=== PATIENT | male | born 1995 | race Caucasian/White ===

== ENCOUNTER 2017-02-01 11:08 | Emergency (ER) | payer MEDICAID ==
[2017-02-01 11:18] VITALS: BP 119/68; PULSE 78; RESP 20; TEMP 99.1
[2017-02-01] MEDS ORDERED: HYDROcodone/APAP 5-325MG 1 EACH TAB PO STA (11:48)
[2017-02-01] MEDS ORDERED: DIPH,PERTUS(ACELL)TETVAC-LF 0.5 ML VIAL IM ONE (11:48)
--- NOTE | 2017-02-01 11:52 | XR ---
EXAMINATION TYPE: XR finger RT DATE OF EXAM ORDERED: 02/01/2017 11:43 AM HISTORY: Pain. COMPARISON: None. FINDINGS: There is a comminuted, minimally displaced tuft fracture of the right ring finger. IMPRESSION: MINIMALLY DISPLACED, COMPOUND COMMINUTED FRACTURE OF THE TUFT OF THE DISTAL PHALANX OF THE RIGHT RING FINGER. CODE B: INITIAL ENCOUNTER FOR OPEN FRACTURE TYPE I OR II
--- NOTE | 2017-02-01 11:53 | ED ---
Upper Extremity HPI - General Chief Complaint: Extremity Injury, Upper Stated Complaint: finger pain Time Seen by Provider: 02/01/17 11:22 Source: patient, RN notes reviewed Mode of arrival: ambulatory Limitations: no limitations - History of Present Illness Initial Comments: 21 year old male presents emergency Department chief complaint right hand injury. Patient states has right hand fourth digit was crushed in a house door. Patient states that his small cut to his middle this finger in there is paint was the distal tip. The nail is intact. Patient unsure when his last tetanus was. Denies any paresthesias. Patient is right-hand dominant. - Related Data Previous Rx's Medication Instructions Recorded Cephalexin [Keflex] 500 mg PO Q6HR #28 cap 02/01/17 Hydrocodone/Acetaminophen [S[place]et 1 tab PO Q6HR PRN #15 tab 02/01/17 5-325] Allergies Allergy/AdvReac Type Severity Reaction Status Date / Time No Known Allergies Allergy Verified 06/06/16 22:40 Review of Systems ROS Statement: Those systems with pertinent positive or pertinent negative responses have been documented in the HPI. ROS Other: All systems not noted in ROS Statement are negative. Past Medical History Past Medical History: No Reported History History of Any Multi-Drug Resistant Organisms: None Reported Past Surgical History: No Surgical Hx Reported Past Psychological History: No Psychological Hx Reported Smoking Status: Current every day smoker Past Alcohol Use History: Occasional Past Drug Use History: None Reported General Exam Limitations: no limitations General appearance: alert, in no apparent distress Respiratory exam: Present: normal lung sounds bilaterally. Absent: respiratory distress, wheezes, rales, rhonchi, stridor Cardiovascular Exam: Present: regular rate, normal rhythm, normal heart sounds. Absent: systolic murmur, diastolic murmur, rubs, gallop, clicks Extremities exam: Present: other (Right hand fourth digit there is a small laceration which is superficial itching PIP and DIP there is tenderness over the distal tip of the fourth digit patient has lungs range of motion secondary to pain. The nail is intact there is a small subungual hematoma which is only a quarter of the nail.) Course Vital Signs 02/01/17 11:15 Temperature 99.1 F Pulse Rate 78 Respiratory 20 Rate Blood Pressure 119/68 O2 Sat by Pulse 97 Oximetry Medical Decision Making - Medical Decision Making 21-year-old male presented for right hand finger injury. Patient has distal tip fracture. Patient has a small superficial laceration. Patient's tetanus is updated. Patient will be placed in a finger splint the wound was thoroughly cleaned. Patient was placed on antibiotics for 7 days. Return parameters were discussed. Disposition Clinical Impression: Crushing injury of finger, Finger fracture, right Disposition: HOME SELF-CARE Condition: Stable Instructions: Finger Fracture (ED) Additional Instructions: Please return to the Emergency Department if symptoms worsen or any other concerns. Prescriptions: Cephalexin [Keflex] 500 mg PO Q6HR #28 cap Hydrocodone/Acetaminophen [Somerset 5-325] 1 tab PO Q6HR PRN #15 tab PRN Reason: Pain Time of Disposition: 11:52
== END 2017-02-01 12:31 | disposition home or self-care (01) ==
LOC: EC 11:08
DX: S67.194A Crushing injury of right ring finger, initial encounter (principal); S62.634A Displaced fracture of distal phalanx of right ring finger, initial encounter for closed fracture; F17.200 Nicotine dependence, unspecified, uncomplicated; Z23 Encounter for immunization; W23.0XXA Caught, crushed, jammed, or pinched between moving objects, initial encounter; Y92.009 Unspecified place in unspecified non-institutional (private) residence as the place of occurrence of the external cause
CPT/HCPCS: 90471; 90715; 99283

== ENCOUNTER → 2018-03-14 | Outpatient (CLI) | payer MEDICAID ==
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
== END ==
LOC: RADXRMAIN 10:48
PROVIDERS: ATTEND Family Medicine
DX: S99.912A Unspecified injury of left ankle, initial encounter (principal)

== ENCOUNTER 2018-09-28 20:10 | Observation (INO) | payer MEDICAID ==
[2018-09-28] MEDS ORDERED: ONDANSETRON 4 MG/2 ML VIAL IVP STA (22:06)
[2018-09-28] MEDS ORDERED: MORPHINE SULFATE 4 MG/ML SYRINGE IV STA (22:06)
[2018-09-28] MEDS ORDERED: SODIUM CHLORIDE 0.9% 500 ML 500 ML IV STA (22:06)
--- NOTE | 2018-09-28 22:09 | ED ---
General Adult HPI - General Chief complaint: Nausea/Vomiting/Diarrhea Stated complaint: Abd pain Source: patient Mode of arrival: ambulatory Limitations: no limitations - History of Present Illness Initial comments: Dictation was produced using [employer] dictation software. please excuse any grammatical, word or spelling errors. Chief Complaint:-year-old malepast medical history presents with multiple weeks of abdominal pain. History of Present Illness: It is a 23-year-old male presents with abdominal pain and lethargy. Is accompanied by mother. There concern that patient has mononucleosis. He was seen by his primary care doctor couple days ago her blood test was performed. Patient did not have any serious abnormalities. Patient denies any CT scanning. Mother reports that patient has been sleeping excessively. Patient had episode of sore throat and some point. Patient states that he has pain of his left upper and left lower quadrant. Patient has diarrhea. Some nausea but minimal vomiting. The ROS documented in this emergency department record has been reviewed and confirmed by me. Those systems with pertinent positive or negative responses have been documented in the HPI. All other systems are other negative and/or noncontributory. - Related Data Home Medications Medication Instructions Recorded Confirmed No Known Home Medications 09/28/18 09/28/18 Allergies Allergy/AdvReac Type Severity Reaction Status Date / Time No Known Allergies Allergy Verified 09/28/18 22:18 Review of Systems ROS Statement: Those systems with pertinent positive or pertinent negative responses have been documented in the HPI. ROS Other: All systems not noted in ROS Statement are negative. Past Medical History Past Medical History: No Reported History History of Any Multi-Drug Resistant Organisms: None Reported Past Surgical History: No Surgical Hx Reported Past Psychological History: No Psychological Hx Reported Smoking Status: Current every day smoker Past Alcohol Use History: Occasional Past Drug Use History: None Reported General Exam - General Exam Comments Initial Comments: PHYSICAL EXAM: General Impression: Alert and oriented x3, not in acute distress HEENT: Normocephalic atraumatic, extra-ocular movements intact, pupils equal and reactive to light bilaterally, mucous membranes moist. Cardiovascular: Heart regular rate and rhythm, S1&S2 audible, no murmurs, rubs or gallops Chest: Lungs clear to auscultation bilaterally, no rhonchi, no wheeze, no rales Abdomen: Bowel sounds present, abdomen soft mild tenderness to the left upper and left lower quadrant, non-distended, no organomegaly Musculoskeletal: Pulses present and equal in all extremities, no peripheral edema Motor: Power 5/5 bilaterally, no focal deficits noted Neurological: CN II-XII grossly intact, no focal motor or sensory deficits noted Skin: Intact with no visualized rashes Psych: Normal affect and mood Limitations: no limitations Course Vital Signs 09/28/18 09/28/18 09/28/18 20:47 22:11 22:15 Temperature 97.4 F L 98.0 F Pulse Rate 74 58 L Respiratory 18 16 20 Rate Blood Pressure 142/82 116/73 166/77 O2 Sat by Pulse 100 100 98 Oximetry 09/28/18 09/29/18 23:00 00:00 Temperature Pulse Rate 57 L Respiratory 16 16 Rate Blood Pressure 112/55 135/83 O2 Sat by Pulse 98 99 Oximetry Medical Decision Making - Medical Decision Making ED course: Year old male checked was primary care physician to come to the emergency department for abdominal pain workup. They're concerned about mononucleosis. On arrival are within acceptable limits.Laboratory evaluation obtained. CBC, metabolic panel, heterophile antibody are within normal limits. Computed tomography scan of the abdomen and pelvis shows no acute processes. There is however a small amount of fluid in the pelvic region of uncertain significance. Patient appears very uncomfortable. There is a mild gap acidosis. Patient given analgesics with improvement of pain. Patient unable to tolerate by mouth. Given the degree of pain and by mouth intolerance plan have patient admitted for IV analgesics, intravenous fluids and GI consultation. Pending urine studies. - Lab Data Result diagrams: 09/28/18 22:44 09/28/18 22:44 Lab Results 09/28/18 09/28/18 09/28/18 Range/Units 22:44 22:44 22:44 WBC 8.6 (3.8-10.6) k/uL RBC 5.01 (4.30-5.90) m/uL Hgb 16.2 (13.0-17.5) gm/dL Hct 47.7 (39.0-53.0) % MCV 95.1 (80.0-100.0) fL MCH 32.2 (25.0-35.0) pg MCHC 33.9 (31.0-37.0) g/dL RDW 11.8 (11.5-15.5) % Plt Count 314 (150-450) k/uL Neutrophils % 83 % Lymphocytes % 12 % Monocytes % 3 % Eosinophils % 1 % Basophils % 0 % Neutrophils # 7.1 (1.3-7.7) k/uL Lymphocytes # 1.0 (1.0-4.8) k/uL Monocytes # 0.3 (0-1.0) k/uL Eosinophils # 0.1 (0-0.7) k/uL Basophils # 0.0 (0-0.2) k/uL Sodium 141 (137-145) mmol/L Potassium 4.5 (3.5-5.1) mmol/L Chloride 102 (98-107) mmol/L Carbon Dioxide 27 (22-30) mmol/L Anion Gap 12 mmol/L BUN 13 (9-20) mg/dL Creatinine 0.84 (0.66-1.25) mg/dL Est GFR (CKD-EPI)AfAm >90 (>60 ml/min/1.73 sqM) Est GFR (CKD-EPI)NonAf >90 (>60 ml/min/1.73 sqM) Glucose 135 H (74-99) mg/dL Calcium 10.9 H (8.4-10.2) mg/dL Total Bilirubin 1.3 (0.2-1.3) mg/dL AST 20 (17-59) U/L ALT 20 L (21-72) U/L Alkaline Phosphatase 52 (38-126) U/L Total Protein 8.4 H (6.3-8.2) g/dL Albumin 5.0 (3.5-5.0) g/dL Lipase 56 (23-300) U/L Heterophile Antibody Negative (Negative) Disposition Clinical Impression: Abdominal pain Disposition: ADMITTED IP TO THIS [facility] Condition: Fair Referrals: Tito Starkey MD [Primary Care Provider] - 1-2 days Decision Time: 01:00
[2018-09-28 23:12] LABS: Basophils % (A) 0 %; Eosinophils # (A) 0.1 k/uL (0-0.7); Eosinophils % (A) 1 %; HCT 47.7 % (39.0-53.0); HGB 16.2 gm/dL (13.0-17.5); Lymphocytes % (A) 12 %; MCH 32.2 pg (25.0-35.0); MCHC 33.9 g/dL (31.0-37.0); MCV 95.1 fL (80.0-100.0); Mean Platelet Volume 7.4; Monocytes # (A) 0.3 k/uL (0-1.0); Monocytes % (A) 3 %; Neutrophils # (A) 7.1 k/uL (1.3-7.7); Neutrophils % (A) 83 %; Platelet Count 314 k/uL (150-450); RBC 5.01 m/uL (4.30-5.90); RDW 11.8 % (11.5-15.5); WBC 8.6 k/uL (3.8-10.6)
[2018-09-28 23:21] LABS: ALT 20 U/L (21-72); AST 20 U/L (17-59); Alkaline Phosphatase 52 U/L (38-126); Anion Gap 12 mmol/L; Blood Urea Nitrogen 13 mg/dL (9-20); Calcium 10.9 mg/dL (8.4-10.2); Carbon Dioxide 27 mmol/L (22-30); Chloride 102 mmol/L (98-107); Glucose 135 mg/dL (74-99); Lipase 56 U/L (23-300); Potassium 4.5 mmol/L (3.5-5.1); Sodium 141 mmol/L (137-145); Total Bilirubin 1.3 mg/dL (0.2-1.3); Total Protein 8.4 g/dL (6.3-8.2)
--- NOTE | 2018-09-28 23:54 | CT ---
EXAMINATION TYPE: CT abdomen pelvis w con DATE OF EXAM: 09/28/2018 COMPARISON: None HISTORY: Abd pain CT DLP: 607.10 mGycm Automated exposure control for dose reduction was used. TECHNIQUE: Helical acquisition of images was performed from the lung bases through the pelvis. CONTRAST: Performed without Oral Contrast and with IV Contrast, patient injected with 100 mL of Isovue 300. FINDINGS: Lung bases are clear. There is no pleural effusion. Heart size is normal. There is no pericardial eff usion. Stomach appears normal. Liver spleen pancreas gallbladder appear normal. Bile ducts are not dilated. There is no adrenal mass. Kidneys show satisfactory contrast opacification. There is no hydronephrosi s. There is no retroperitoneal adenopathy. Bladder distends smoothly. There is a 1 cm fluid collectio n in the pelvis posteriorly on the left side. There is no inguinal hernia. I see no intestinal wall thickening. There are no dilated loops. There is no mesenteric edema. The ap pendix appears normal. The lumbar spine is intact. Disc spaces are normal. The bony pelvis appears intact. There is no sign of pneumoperitoneum. IMPRESSION: TINY PELVIC FLUID COLLECTION OF UNCERTAIN SIGNIFICANCE . NORMAL APPENDIX.
[2018-09-29] MEDS ORDERED: SODIUM CHLORIDE 0.9% 1,000 ML IV SCH (01:00)
[2018-09-29] MEDS ORDERED: MORPHINE SULFATE 4 MG/ML SYRINGE IV PRN (01:00)
[2018-09-29] MEDS ORDERED: NALOXONE 0.4 MG/ML 1 ML VIAL IV PRN (01:00)
[2018-09-29] MEDS ORDERED: ACETAMINOPHEN TAB 325 MG TAB PO PRN (01:00)
[2018-09-29] MEDS ORDERED: ONDANSETRON 4 MG/2 ML VIAL IVP PRN (01:00)
[2018-09-29] MEDS ORDERED: MORPHINE SULFATE 4 MG/ML SYRINGE IVP PRN (01:02)
[2018-09-29 01:15] LABS: Appearance,Urine Clear (Clear); Bilirubin,Urine Negative (Negative); Blood,Urine Negative (Negative); Color,Urine Yellow; Glucose,Urine (UA) Negative (Negative); Ketones,Urine 1+ (Negative); Leukocyte Esterase,Urine Negative (Negative); Nitrite,Urine Negative (Negative); PH, Urine 8.5 (5.0-8.0); Protein,Urine Trace (Negative); Urobilinogen,Urine <2.0 mg/dL (<2.0)
[2018-09-29 01:26] LABS: Specific Gravity,Urine >1.050 (1.001-1.035)
[2018-09-29] MEDS ORDERED: traMADol 50 MG TAB PO PRN (14:43)
[2018-09-29] MEDS ORDERED: PANTOPRAZOLE 40 MG/10 ML VIAL IVP SCH (15:00)
[2018-09-29] MEDS ORDERED: DICYCLOMINE 20 MG TAB PO PRN (17:31)
[2018-09-29 17:44] VITALS: RESP 18
[2018-09-29 21:21] VITALS: BP 119/73; PULSE 65; TEMP 97.7
--- NOTE | 2018-09-30 09:38 | P.HPIM ---
History of Present Illness H&P Date: 09/29/18 23-year-old male came in with compensative abdominal pain in the epigastric area burning sensation along with her nausea vomiting patient denied any flulike symptoms. Patient had the 3 different types of diarrhea patient has chronic dairy us in his childhood which appears to be gastrocolic reflex whenever he had eats he'll have to have a bowel movement not essentially diarrhea at that time. He has been having increasing diarrhea for one and half week patient had a recent visit to my Patient denied any blood in the stools. Patient is not dehydrated patient was having about 5 stools a day not all of them or diarrhea. Day before presentation patient was having nausea vomiting generalized weakness because of which patient came to ER. Patient was and about appendicitis The Abdomen Was Obtained Which Did Not Show Any Appendicitis R Any Other Significant Abnormality There Is Some Free Fluid in the Abdomen. Patient Doesn't Have Any Fever Chills Cough Runny Nose. Review of Systems REVIEW OF SYSTEMS: CONSTITUTIONAL: No fever, no malaise, no fatigue. HEENT: No recent visual problems or hearing problems. Denied any sore throat. CARDIOVASCULAR: No chest pain, orthopnea, PND, no palpitations, no syncope. PULMONARY: No shortness of breath, no cough, no hemoptysis. GASTROINTESTINAL: As mentioned in HPI NEUROLOGICAL: No headaches, no weakness, no numbness. HEMATOLOGICAL: Denies any bleeding or petechiae. GENITOURINARY: Denies any burning micturition, frequency, or urgency. MUSCULOSKELETAL/RHEUMATOLOGICAL: Denies any joint pain, swelling, or any muscle pain. ENDOCRINE: Denies any polyuria or polydipsia. The rest of the 14-point review of systems is negative. Past Medical History Past Medical History: No Reported History History of Any Multi-Drug Resistant Organisms: None Reported Past Surgical History: No Surgical Hx Reported Past Anesthesia/Blood Transfusion Reactions: No Reported Reaction Additional Past Anesthesia/Blood Transfusion Reaction / Comment(s): "has never had any sx Smoking Status: Current every day smoker - Past Family History Father Family Medical History: No Reported History Mother Family Medical History: Asthma, Hypertension Medications and Allergies Home Medications Medication Instructions Recorded Confirmed Type Omeprazole [PriLOSEC] 40 mg PO KENNETHKFST #14 nafisa. 09/29/18 Rx Allergies Allergy/AdvReac Type Severity Reaction Status Date / Time No Known Allergies Allergy Verified 09/28/18 22:18 Physical Exam Vitals: Vital Signs Temp Pulse Resp BP Pulse Ox 09/29/18 21:20 97.7 F 65 18 119/73 97 09/29/18 17:43 55 L 18 135/88 98 09/29/18 12: 98.6 F 16 117/58 96 09/29/18 10:33 16 108/69 97 PHYSICAL EXAMINATION: GENERAL: The patient is alert and oriented x3, not in any acute distress. Well developed, well nourished. HEENT: Pupils are round and equally reacting to light. EOMI. No scleral icterus. No conjunctival pallor. Normocephalic, atraumatic. No pharyngeal erythema. No thyromegaly. CARDIOVASCULAR: S1 and S2 present. No murmurs, rubs, or gallops. PULMONARY: Chest is clear to auscultation, no wheezing or crackles. ABDOMEN: Soft, nontender, nondistended, normoactive bowel sounds. No palpable organomegaly. MUSCULOSKELETAL: No joint swelling or deformity. EXTREMITIES: No cyanosis, clubbing, or pedal edema. NEUROLOGICAL: Gross neurological examination did not reveal any focal deficits. SKIN: No rashes. Results CBC & Chem 7: 09/28/18 22:44 09/28/18 22:44 Assessment and Plan Plan: -Diarrhea: Patient has 3 different areas patient has normal gastrocolic reflex and patient had some subacute diarrhea has been going on for about one and half week which need to be further evaluated for which I'll obtain a stool study if patient continues to have this diarrhea patient will need further workup for chronic diarrhea including 72 hour fecal fat colonoscopy possible patient will be referred to gastroenterology for this. Patient doesn't have any decentry and patient is not dehydrated at this time. No signs or symptoms of entric fever. The present symptoms had there has been going on for a day which includes fatigue nausea vomiting epigastric abdominal discomfort secondary to viral gastroenteritis with a competent of gastritis for which patient related Prilosec will advance his diet patient is able to tolerate patient will be discharged. -Nicotine use: "Counseling was provided
--- NOTE | 2018-09-30 09:39 | P.DS ---
Providers Date of admission: 09/29/18 01:00 Expected date of discharge: 09/29/18 Attending physician: Graham Rodriguez MD Consults: 09/29/18 01:01 Consult Physician Routine Consulting Provider: Harrison Lackey Consult Reason/Comments: abdominal pain no obvious source, free pelvic fluid Do you want consulting provider notified?: Yes Primary care physician: Tito Starkey Hospital Course: Please refer to my HPI Patient Condition at Discharge: Fair Plan - Discharge Summary Discharge Rx Participant: Yes New Discharge Prescriptions: New Omeprazole [PriLOSEC] 40 mg PO AC-BRKFST #14 capsule. Discharge Medication List Omeprazole [PriLOSEC] 40 mg PO AC-BRKFST #14 capsule. 09/29/18 [Rx] Follow up Appointment(s)/Referral(s): Tito Starkey MD [Primary Care Provider] - 3 Days Harrison Lackey MD [STAFF PHYSICIAN] - 1 Week Discharge Disposition: HOME SELF-CARE
== END 2018-09-29 21:20 | disposition home or self-care (01) ==
LOC: EC 20:10 → 4MS4W 09-29 01:00 → 4SSUR 09-29 03:42 → 4MS4W 09-29 20:03 → 4SSUR 09-29 20:03
PROVIDERS: ADMIT Internal Medicine; ATTEND Internal Medicine
DX: A08.4 Viral intestinal infection, unspecified (principal); K29.70 Gastritis, unspecified, without bleeding; R19.7 Diarrhea, unspecified; E87.2 Acidosis; F17.200 Nicotine dependence, unspecified, uncomplicated; Z71.6 Tobacco abuse counseling; Z79.899 Other long term (current) drug therapy; Z82.49 Family history of ischemic heart disease and other diseases of the circulatory system; Z82.5 Family history of asthma and other chronic lower respiratory diseases
CPT/HCPCS: 96376; 96361; 96374; 96375 ×2; 99285; 36415; 80053; 83690; 85025; 86308; 81003; 74177; G0378; J2270 ×2; J2405; C9113; Q9967

== ENCOUNTER → 2018-10-20 | Day surgery (SDC) | payer MEDICAID ==
[2018-10-18 15:54] VITALS: BMI 21.4
[~2018-10-20] MED LIST: LACTATED RINGERS 1,000 ML IV SCH; LIDOCAINE 1% 20 ML VIAL (10MG/ML) FOR IV START INTRADERMA PRN; LIDOCAINE 1% INJ 10MG/ML (20 ML MDV) ONE; MIDAZOLAM 2 MG/2 ML VIAL ONE; PROPOFOL 10 MG/ML 20 ML VIAL IV ONE
[2018-10-20 08:04] VITALS: RESP 16; TEMP 98.5
[2018-10-20 09:06] VITALS: BP 119/72; PULSE 59
--- NOTE | 2018-10-20 09:06 | P.PCN ---
Date of Procedure: 10/20/18 Description of Procedure: Brief history: Patient is a pleasant scheduled for an elective upper endoscopy as well as colonoscopy as a part of evaluation of a change in his bowel habits, diarrhea and abdominal pain. The patient was previously seen in the emergency department after reporting symptoms of abdominal pain with nausea and vomiting and reports of loose stool. He denied any hematochezia or melena. No prior EGD or colonoscopy reported. Procedure performed: Esophagogastroduodenoscopy with biopsy Colonoscopy with biopsy Estimated blood loss: Minimal. Preoperative diagnosis: Abdominal pain, change in bowel habits, diarrhea Anesthesia: [facility] Procedure: After informed consent was obtained from the patient was brought into the endoscopy unit and IV sedation was administered by anesthesia under continuous monitoring. Initially upper endoscopy was done. The Olympus GF 190 video endoscope was inserted inserted into the mouth and esophagus intubated without any difficulty and was gradually advanced into the stomach and duodenum and carefully examined. The bulb and second part of the duodenum appeared normal with biopsies taken. The scope was then withdrawn into the stomach adequately insufflated with air and upon careful examination the antrum and body, cardia and fundus appeared grossly normal, it was mild to moderate diffuse erythema in the antrum and body of the stomach suggestive of gastritis which was biopsied. The scope was then withdrawn into the esophagus. The GE junction was located at 40 cm to the incisors. It appeared regular with no erythema erosions or ulcerations. Rest of the esophagus appeared normal. Patient tolerated the procedure well. At this time the patient continued to remain sedation. Initial digital rectal examination was normal. Olympus CF 190 video colonoscope was then inserted into the rectum and gradually advanced to the cecum without any difficulty. Careful examination was performed as the scope was gradually being withdrawn. The prep was excellent. The cecum, ascending colon, transverse colon, descending colon, sigmoid colon and rectum appeared normal. Random biopsies were taken in the right colon, transverse colon, left colon and rectum given the patient's history of a change in bowel habits and diarrhea. Retroflexion was performed in the rectum and no lesions were noted, mild internal hemorrhoids were seen. Patient tolerated the procedure well. Impression: 1. Duodenal biopsies. [id number] gastritis of the antrum and body, biopsied. 2. Mild internal hemorrhoids. Random biopsies of the right colon, transverse colon, left colon and rectum. Recommendations: Findings of this examination were discussed with the patient as well as his mother. Continue Prilosec daily. Await pathology from biopsies. Antispasmodic was provided on clinic visit to use as needed for abdominal pain. Follow up with gastroenterology in 2 weeks to review results of pathology.
== END | disposition home or self-care (01) ==
LOC: ORWHC2ENDO 07:47
PROVIDERS: ATTEND Internal Medicine
DX: K29.50 Unspecified chronic gastritis without bleeding (principal); K64.8 Other hemorrhoids; R19.7 Diarrhea, unspecified; F17.210 Nicotine dependence, cigarettes, uncomplicated; K21.9 Gastro-esophageal reflux disease without esophagitis; Z79.899 Other long term (current) drug therapy
CPT/HCPCS: 88305; 45380; 43239; J2250; J2001; J2704

== ENCOUNTER → 2018-11-05 | Outpatient (CLI) | payer MEDICAID | END | disposition home or self-care (01) | LOC: LABWHC1 11:10 | PROVIDERS: ATTEND Internal Medicine | DX: R10.9 Unspecified abdominal pain (principal) | CPT/HCPCS: 36415; 85652; 86140 ==

== ENCOUNTER → 2019-10-12 | Outpatient (CLI) | payer MEDICAID ==
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
== END | disposition home or self-care (01) ==
LOC: RADXRMAIN 12:34
PROVIDERS: ATTEND Family Medicine
DX: S43.402A Unspecified sprain of left shoulder joint, initial encounter (principal); S40.012A Contusion of left shoulder, initial encounter

== ENCOUNTER 2020-03-24 07:22 | Inpatient (IN) | payer MEDICAID ==
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
[2020-03-24 08:26] LABS: Amphetamine Screen,Urine Detected (NotDetected); Barbiturate Screen,Urine Not Detected (NotDetected); Benzodiazepines Screen,Urine Detected (NotDetected); Cocaine Screen,Urine Not Detected (NotDetected); Methadone Screen, Urine Not Detected (NotDetected); Opiate Screen,Urine Detected (NotDetected); Oxycodone Screen, Urine Detected (NotDetected); Phencyclidine Screen,Urine Not Detected (NotDetected); Tricyclic Antidepressant,Urine Not Detected (NotDetected); Urn Cannabinoid Scrn Detected (NotDetected)
[2020-03-24] MEDS ORDERED: MAGNESIUM HYDROXIDE 2,400 MG/10 ML CUP PO PRN (15:04)
[2020-03-24] MEDS ORDERED: MAG HYDROX/AL HYDROX/SIMETH 30 ML CUP PO PRN (15:04)
[2020-03-24] MEDS ORDERED: WATER FOR INJECTION, STERILE 10 ML IV ONE (16:06)
[2020-03-24] MEDS ORDERED: ZIPRASIDONE 20 MG VIAL IM ONE (16:06)
[2020-03-24] MEDS ORDERED: ZIPRASIDONE 20 MG VIAL IM PRN (16:22)
[2020-03-24] MEDS ORDERED: LORazepam 2 MG/ML INJ IM STA (16:22)
[2020-03-24] MEDS ORDERED: LORazepam 2 MG/ML INJ ONE (16:26)
[2020-03-25 08:27] LABS: Basophils % (A) 0 %; Eosinophils # (A) 0.2 k/uL (0-0.7); Eosinophils % (A) 2 %; HCT 45.8 % (39.0-53.0); Lymphocytes # (A) 2.3 k/uL (1.0-4.8); Lymphocytes % (A) 25 %; MCH 30.9 pg (25.0-35.0); MCHC 32.8 g/dL (31.0-37.0); MCV 94.3 fL (80.0-100.0); Mean Platelet Volume 8.1; Monocytes # (A) 0.4 k/uL (0-1.0); Monocytes % (A) 5 %; Neutrophils % (A) 66 %; Platelet Count 262 k/uL (150-450); RBC 4.86 m/uL (4.30-5.90); RDW 12.2 % (11.5-15.5); WBC 9.1 k/uL (3.8-10.6)
[2020-03-25 08:46] LABS: ALT 15 U/L (4-49); AST 22 U/L (17-59); African American GFR (CKD) >90 (>60 ml/min/1.73 sqM); Albumin 4.5 g/dL (3.5-5.0); Alkaline Phosphatase 52 U/L (38-126); Anion Gap 9 mmol/L; Blood Urea Nitrogen 16 mg/dL (9-20); Calcium 9.8 mg/dL (8.4-10.2); Carbon Dioxide 29 mmol/L (22-30); Chloride 104 mmol/L (98-107); Cholesterol 173 mg/dL (<200); Glucose 93 mg/dL (74-99); HDL Cholesterol 59 mg/dL (40-60); LDL Cholesterol,Calculated 69 mg/dL (0-99); Non-African American GFR(CKD) >90 (>60 ml/min/1.73 sqM); Potassium 4.1 mmol/L (3.5-5.1); Sodium 142 mmol/L (137-145); Total Bilirubin 2.3 mg/dL (0.2-1.3); Total Protein 7.5 g/dL (6.3-8.2); Triglycerides 227 mg/dL (<150)
[2020-03-25] MEDS ORDERED: NICOTINE 14MG/24HR PATCH TRANSDERM SCH (09:00)
[2020-03-25] MEDS: LORazepam 1 MG TAB PO PRN ×2 (10:48→18:27)
[2020-03-25] MEDS: NICOTINE 21MG/24HR PATCH TRANSDERM SCH ×2 (10:54→21:47)
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
[2020-03-25 18:02] LABS: Hemoglobin A1C 4.6 % (4.0-6.0)
--- NOTE | 2020-03-25 18:35 | P.MDCNMH ---
History of Present Illness H&P Date: 03/25/20 Chief Complaint: Medical consultation of mental health patient Mr. Mccoy is a 24-year-old male with no past medical history is admitted to the psychiatric unit as he was dropped up last night. Patient got himself checked in stating that he could not remember the events that have been and feels like that he was not acting like himself. He also tried to wrap a clot around his neck and tried to hang himself. Patient was also using marijuana on every day basis to help him with the appetite. Patient denied having any chronic medical conditions other than symptoms of GERD 1 year back that resolved with medications after few days. He does not take any medications on a regular basis. On review of systems patient denies having any fevers chills or rigors. No chest pain or palpitations. No cough or difficulty in breathing. No abdominal pain nausea vomiting or diarrhea. No issues with bowel or bladder. Review of Systems REVIEW OF SYSTEMS: NEURO:No c/o weakness of the extremties, No facial droop, No speech ab normalities. VASCULAR: no edema HEMATOLOGIC: No history of easy bleeding and bruising . No recent infections . RESPIRATORY: No cough, No SOB, No chest discomfort. IMMUNE: No infections INTEGUMENT: no rashes OPHTHALMOLOGIC: No blurry vision and no eye discharge : No dysuria or hematuria CARDIAC: No chest pain , shortness of breath , paroxysmal nocturnal dyspnea MUSCULOSKELETAL : No Aches or pains in the joints or muscles. GI: as per HPI Past Medical History Past Medical History: GERD/Reflux History of Any Multi-Drug Resistant Organisms: None Reported Past Surgical History: No Surgical Hx Reported Past Anesthesia/Blood Transfusion Reactions: No Reported Reaction Additional Past Anesthesia/Blood Transfusion Reaction / Comment(s): "has never had any sx Past Psychological History: No Psychological Hx Reported Smoking Status: Current every day smoker Past Alcohol Use History: Occasional Past Drug Use History: Marijuana - Past Family History Father Family Medical History: No Reported History Mother Family Medical History: Asthma, Hypertension Medications and Allergies Home Medications Medication Instructions Recorded Confirmed Type No Known Home Medications 03/24/20 03/24/20 History Allergies Allergy/AdvReac Type Severity Reaction Status Date / Time No Known Allergies Allergy Verified 03/24/20 12:20 Physical Exam Vitals: Vital Signs Temp Pulse Resp BP 03/24/20 16:34 96.7 F L 100 14 111/58 - Constitutional General appearance: average body habitus, cooperative - EENT Eyes: EOMI, PERRLA ENT: normal oropharynx - Neck No thyromegaly - Respiratory Bilateral BS positive. No wheeze or crackles - Cardiovascular Sinus rhythm, no murmurs - Gastrointestinal General gastrointestinal: normal bowel sounds, soft - Neurologic Neurologic: CNII-XII intact - Musculoskeletal Musculoskeletal: gait normal - Psychiatric Psychiatric: A&O x's 3 Cranial Nerve Examination - Cranial Nerves Cranial Nerve I- Olfactory: Intact Cranial Nerve II- Optic: Intact Cranial Nerve III- Oculomotor: Intact Cranial Nerve IV- Trochlear: Intact Cranial Nerve V- Trigeminal: Intact Cranial Nerve - Abducens: Intact Cranial Nerve VII- Facial: Intact Cranial Nerve VIII- Auditory: Intact Cranial Nerve IX- Glossopharyngeal: Intact Cranial Nerve X- Vagus: Intact Cranial Nerve XI- Accessory: Intact Cranial Nerve XII- Hypoglossal: Intact Results CBC & Chem 7: 03/25/20 08:05 03/25/20 08:05 Labs: Abnormal Lab Results - Last 24 Hours (Table) 03/25/20 Range/Units 08:05 Total Bilirubin 2.3 H (0.2-1.3) mg/dL Triglycerides 227 H (<150) mg/dL TSH 0.212 L (0.465-4.680) mIU/L Assessment and Plan Assessment: ASSESSMENT Depression Substance abuse disorder History of GERD Plan: Patient does not have any chronic medical issues and does not take any medications. Reviewed vitals and labs that are within normal limits. We will follow the patient on as-needed basis. Thank you for your consultation.
[2020-03-25] MEDS: ACETAMINOPHEN TAB 325 MG TAB PO PRN (21:46)
[2020-03-26 06:37] VITALS: BP 114/66; PULSE 73; RESP 16
[2020-03-26] MEDS: NICOTINE 21MG/24HR PATCH TRANSDERM SCH (08:07)
[2020-03-26] MEDS: LORazepam 1 MG TAB PO PRN (08:38)
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
[2020-03-26] MEDS: ACETAMINOPHEN TAB 325 MG TAB PO PRN (12:54)
[2020-03-26 13:13] VITALS: TEMP 98.4
== END 2020-03-26 14:55 | disposition home or self-care (01) | DRG 881 ==
LOC: EC 07:22 → 3MHU 14:59
PROVIDERS: ADMIT Psychiatry & Neurology Psychiatry; ATTEND Psychiatry & Neurology Psychiatry
DX: F32.9 Major depressive disorder, single episode, unspecified (principal); R45.851 Suicidal ideations; F12.20 Cannabis dependence, uncomplicated; F13.10 Sedative, hypnotic or anxiolytic abuse, uncomplicated; F41.9 Anxiety disorder, unspecified; K21.9 Gastro-esophageal reflux disease without esophagitis; F17.210 Nicotine dependence, cigarettes, uncomplicated; Z82.5 Family history of asthma and other chronic lower respiratory diseases; Z82.49 Family history of ischemic heart disease and other diseases of the circulatory system
CPT/HCPCS: 80053; 80061; 80306; 82075; 83036; 84443; 85025; 99284

== ENCOUNTER 2021-05-28 22:02 | Inpatient (IN) | payer MEDICAID ==
[2021-05-28] MEDS ORDERED: MORPHINE SULFATE 2 MG/ML SYRINGE IM STA (22:19)
[2021-05-28] MEDS ORDERED: ceFAZolin 1,000 MG VIAL (IM USE) IM STA (22:19)
[2021-05-28] MEDS ORDERED: DIPH,PERTUS(ACELL)TETVAC-LF 0.5 ML VIAL IM ONE (22:19)
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
--- NOTE | 2021-05-28 22:49 | CT ---
EXAMINATION TYPE: CT brain cspine wo con DATE OF EXAM: 05/28/2021 COMPARISON: CT brain 06/05/2004 HISTORY: Fall CT DLP: 1419.1 mGycm Automated exposure control for dose reduction was used. Ventricles and sulci appear normal. There is no mass effect nor midline shift. There is no sign of in tracranial hemorrhage. Calvarium is intact. There is no evidence of cerebral edema. There is normal a eration of the mastoid sinuses. Cervical vertebra have normal alignment. Disc spaces are normal. Posterior elements are intact. Facet joints appear intact. Skull base is intact. Prevertebral soft tissues appear normal. IMPRESSION: Negative CT scan of the cervical spine. Negative CT scan of the brain.
--- NOTE | 2021-05-28 23:08 | XR ---
EXAMINATION TYPE: XR ribs LT w pa chest xray DATE OF EXAM: 05/28/2021 COMPARISON: 07/01/2007 HISTORY: Left side rib pain TECHNIQUE: 5 views FINDINGS: Heart and mediastinum are normal. Lungs are clear of infiltrate. There is no pleural effusi on or pneumothorax. There is no evidence of a fracture. IMPRESSION: Normal chest and left rib exam.
--- NOTE | 2021-05-28 23:19 | XR ---
EXAMINATION TYPE: XR knee complete LT DATE OF EXAM: 05/28/2021 COMPARISON: NONE HISTORY: Knee pain TECHNIQUE: 3 views FINDINGS: There is no sign of fracture nor dislocation. There is no evidence of joint effusion. Joint spaces are fairly normal. IMPRESSION: No fracture seen.
[2021-05-28] MEDS ORDERED: SODIUM CHLORIDE 0.9% 1,000 ML IV SCH (23:45)
[2021-05-28] MEDS ORDERED: LIDOCAINE 1% INJ 10MG/ML (20 ML MDV) SQ ONE (23:50)
[2021-05-28] MEDS ORDERED: ONDANSETRON 4 MG/2 ML VIAL IVP PRN (23:51)
[2021-05-28] MEDS ORDERED: NALOXONE 0.4 MG/ML 1 ML VIAL IV PRN (23:51)
[2021-05-28] MEDS ORDERED: HYDROmorphone 0.5 MG/0.5 ML SYRINGE IVP PRN (23:51)
[2021-05-28] MEDS ORDERED: BACITRACIN OINT 1 EACH PACKET TOPICAL ONE (23:52)
[2021-05-29] MEDS ORDERED: MORPHINE SULFATE 4 MG/ML SYRINGE IVP STA (00:09)
[2021-05-29] MEDS ORDERED: LORazepam 2 MG/ML INJ IV STA (00:29)
[2021-05-29 00:34] LABS: Basophils % (A) 0 %; Eosinophils % (A) 0 %; HCT 43.3 % (39.0-53.0); HGB 15.1 gm/dL (13.0-17.5); Lymphocytes # (A) 1.7 k/uL (1.0-4.8); Lymphocytes % (A) 21 %; MCH 33.7 pg (25.0-35.0); MCHC 34.9 g/dL (31.0-37.0); MCV 96.6 fL (80.0-100.0); Mean Platelet Volume 7.9; Monocytes # (A) 0.4 k/uL (0-1.0); Monocytes % (A) 6 %; Neutrophils # (A) 5.6 k/uL (1.3-7.7); Neutrophils % (A) 70 %; Platelet Count 283 k/uL (150-450); Poikilocytosis Slight; RBC 4.49 m/uL (4.30-5.90); RDW 14.3 % (11.5-15.5)
[2021-05-29 00:35] LABS: Appearance,Urine Clear (Clear); Bilirubin,Urine Negative (Negative); Blood,Urine Negative (Negative); Color,Urine Colorless; Glucose,Urine (UA) Negative (Negative); Ketones,Urine Negative (Negative); Leukocyte Esterase,Urine Negative (Negative); Nitrite,Urine Negative (Negative); Protein,Urine Negative (Negative); Specific Gravity,Urine 1.002 (1.001-1.035); Urobilinogen,Urine <2.0 mg/dL (<2.0)
[2021-05-29 00:49] LABS: ALT 13 U/L (4-49); AST 25 U/L (17-59); African American GFR (CKD) >90 (>60 ml/min/1.73 sqM); Albumin 4.9 g/dL (3.5-5.0); Alkaline Phosphatase 43 U/L (38-126); Anion Gap 14 mmol/L; Blood Urea Nitrogen 9 mg/dL (9-20); Calcium 9.9 mg/dL (8.4-10.2); Carbon Dioxide 22 mmol/L (22-30); Chloride 109 mmol/L (98-107); Glucose 91 mg/dL (74-99); Non-African American GFR(CKD) >90 (>60 ml/min/1.73 sqM); Sodium 145 mmol/L (137-145); Total Bilirubin 0.7 mg/dL (0.2-1.3); Total Protein 7.5 g/dL (6.3-8.2)
[2021-05-29 04:04] LABS: Amphetamine Screen,Urine Not Detected (NotDetected); Barbiturate Screen,Urine Not Detected (NotDetected); Benzodiazepines Screen,Urine Not Detected (NotDetected); Cocaine Screen,Urine Detected (NotDetected); Methadone Screen, Urine Not Detected (NotDetected); Opiate Screen,Urine Detected (NotDetected); Oxycodone Screen, Urine Not Detected (NotDetected); Phencyclidine Screen,Urine Not Detected (NotDetected); Tricyclic Antidepressant,Urine Not Detected (NotDetected); Urn Cannabinoid Scrn Detected (NotDetected)
[2021-05-29] MEDS ORDERED: HYDROmorphone 1 MG/ML 1 ML SYRINGE IVP STA (04:07)
[2021-05-29] MEDS ORDERED: diphenhydrAMINE 50 MG/ML 1 ML VIAL IVP STA (04:07)
[2021-05-29] MEDS ORDERED: HYDROmorphone 1 MG/ML 1 ML SYRINGE IVP PRN (04:07)
[2021-05-29] MEDS ORDERED: diphenhydrAMINE 50 MG/ML 1 ML VIAL IVP PRN (04:07)
[2021-05-29] MEDS ORDERED: LACTATED RINGERS 1,000 ML IV SCH (07:15)
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
[2021-05-29] MEDS ORDERED: LACTATED RINGERS 1,000 ML IV ONE ×2 (11:52→13:19)
[2021-05-29] MEDS ORDERED: ONDANSETRON 4 MG/2 ML VIAL IVP ONE (12:06)
[2021-05-29] MEDS ORDERED: SUCCINYLCHOLINE CHLORIDE 100 MG/5 ML SYR IV ONE (12:45)
[2021-05-29] MEDS ORDERED: PROPOFOL 10 MG/ML 20 ML VIAL IV ONE (12:45)
[2021-05-29] MEDS ORDERED: LIDOCAINE 1% INJ 10MG/ML (20 ML MDV) ONE (12:45)
[2021-05-29] MEDS ORDERED: MIDAZOLAM 2 MG/2 ML VIAL ONE (12:45)
[2021-05-29] MEDS ORDERED: KETAMINE 10 MG/ML 20 ML VIAL ONE (12:45)
[2021-05-29] MEDS ORDERED: fentaNYL (PF) 50 MCG/ML 2 ML AMP ONE (12:45)
[2021-05-29] MEDS ORDERED: SODIUM CHLORIDE 0.9% 100 ML with ceFAZolin 2,000 MG IV ONE ×2 (12:48)
[2021-05-29] MEDS ORDERED: SODIUM CHLORIDE 0.9% IRRIGATION ONE (13:07)
[2021-05-29] MEDS ORDERED: BUPIVACAINE 0.25% IRRIGATION ONE (13:07)
[2021-05-29] MEDS ORDERED: BACITRACIN ZINC 500 UNIT/GM OINT 28.4 GM TUBE TOPICAL ONE (13:29)
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
[2021-05-29 13:54] VITALS: RESP 16; TEMP 98
--- NOTE | 2021-05-29 14:18 | P.DS ---
Providers Date of admission: 05/29/21 13:04 Expected date of discharge: 05/29/21 Attending physician: Tejas Lara DO Consults: 05/28/21 23:51 Consult Physician Routine Consulting Provider: Tito Starkey Consult Reason/Comments: Medical management Do you want consulting provider notified?: Yes Primary care physician: Tito Starkey Hospital Course: Date of admission: 05/28/2021 Date of discharge: 05/29/2021 Admission diagnosis: Left Leg Laceration Discharge diagnosis: Same Attending physician: Dr. Lara Surgical procedures: Left leg irrigation and debridement Brief history: Patient is a 25-year-old male with a history of left leg complex laceration. At this point patient has failed conservative treatment measures and has opted to proceed with a elective left leg irrigation debridement. Hospital course: Details of patient's surgery can be found in operative report. Patient tolerated the procedure well and was subsequently transported to orthopedic floor. Patient's orthopeidc and medical care was provided daily. Patient had daily laboratory tests performed for evaluation of overall blood counts. Patient had daily physical therapy to include strengthening range of motion as well as education with walker ambulation. Patient was noted to have a relatively uneventful postoperative course. Patient reported satisfactory pain control with oral pain medications by postoperative day 0. Patient showed satisfactory progress with physical therapy. Patient moved steadily through the program and had no difficulty meeting the goals by postoperative day 0. Given patient's otherwise satisfactory course and having met physical therapy goals, plan is to discharge patient home on postoperative day 0. Discharge condition/disposition: Patient will be discharged home in stable condition. Discharge medications: Instructions are given on resumption of patient's normal daily medications per primary care recommendation, in addition patient will be prescribed tramadol; Duricef. . Assessment: Left leg laceration Procedures: Irrigation debridement left leg Patient Condition at Discharge: Good Plan - Discharge Summary New Discharge Prescriptions: New cefaDROXiL [Duricef] 1 gm PO DAILY #10 tablet traMADol HCl [Ultram] 50 mg PO Q6H PRN #18 tab PRN Reason: Pain Discharge Medication List cefaDROXiL [Duricef] 1 gm PO DAILY #10 tablet 05/29/21 [Rx] traMADol HCl [Ultram] 50 mg PO Q6H PRN #18 tab 05/29/21 [Rx] Follow up Appointment(s)/Referral(s): Tito Starkey MD [Primary Care Provider] - 1-2 days Tejas Lara DO [Doctor of Osteopathic Medicine] - 06/04/21 Activity/Diet/Wound Care/Special Instructions: -keep dressing dry until Wednesday06/02/2021. - may remove dressing on 06/02/2021 and shower over incision - pain meds as needed -f/u next Wednesday in office Discharge Disposition: HOME SELF-CARE
[2021-05-29] MEDS ORDERED: traMADol 50 MG TAB ONE (15:07)
[2021-05-29] MEDS ORDERED: traMADol 50 MG TAB PO ONE (15:11)
[2021-05-29 15:32] VITALS: BP 133/73; PULSE 87
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
== END 2021-05-29 15:50 | disposition home or self-care (01) | DRG 581 ==
LOC: EC 22:02 → 6NMEDSUR 05-29 00:33 → OBSVTOIN 05-29 13:04
PROVIDERS: ADMIT Orthopaedic Surgery; ATTEND Orthopaedic Surgery
PROC: 0KQT3ZZ Repair Left Lower Leg Muscle, Percutaneous Approach (ICD-10-PCS; principal; 2021-05-28)
DX: S81.012A Laceration without foreign body, left knee, initial encounter (principal); S40.212A Abrasion of left shoulder, initial encounter; S40.211A Abrasion of right shoulder, initial encounter; K21.9 Gastro-esophageal reflux disease without esophagitis; F17.200 Nicotine dependence, unspecified, uncomplicated; V86.79XA Person on outside of other special all-terrain or other off-road motor vehicles injured in nontraffic accident, initial encounter; Z82.5 Family history of asthma and other chronic lower respiratory diseases; Z82.49 Family history of ischemic heart disease and other diseases of the circulatory system
CPT/HCPCS: 12001; 36415; 70450; 72125; 80053; 80306; 81003; 85025; 90471; 90715; 96372; 99285

== ENCOUNTER 2021-06-29 00:51 | Emergency (ER) | payer OTHER, MEDICAID ==
[2021-06-29 01:13] VITALS: BP 108/65; PULSE 65; RESP 20; TEMP 98.3
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
== END 2021-06-29 02:03 | disposition home or self-care (01) ==
LOC: EC 00:51
DX: Z04.3 Encounter for examination and observation following other accident (principal); K21.9 Gastro-esophageal reflux disease without esophagitis; F17.290 Nicotine dependence, other tobacco product, uncomplicated; F12.90 Cannabis use, unspecified, uncomplicated
CPT/HCPCS: 99284

== ENCOUNTER 2021-07-02 17:33 | Emergency (ER) | payer MEDICAID ==
[2021-07-02 18:24] VITALS: TEMP 98.4
[2021-07-02] MEDS ORDERED: SODIUM CHLORIDE 0.9% 1,000 ML IV STA (19:54)
[2021-07-02] MEDS ORDERED: levETIRAcetam IV 1,000 MG in SALINE 1 100ML.BAG IVPB STA (19:55)
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
[2021-07-02 20:13] LABS: Basophils % (A) 0 %; Eosinophils % (A) 0 %; HCT 40.3 % (39.0-53.0); HGB 13.6 gm/dL (13.0-17.5); Lymphocytes # (A) 2.1 k/uL (1.0-4.8); Lymphocytes % (A) 21 %; MCH 31.9 pg (25.0-35.0); MCHC 33.8 g/dL (31.0-37.0); MCV 94.2 fL (80.0-100.0); Mean Platelet Volume 8.6; Monocytes % (A) 4 %; Neutrophils % (A) 72 %; Platelet Count 226 k/uL (150-450); RBC 4.28 m/uL (4.30-5.90); RDW 11.6 % (11.5-15.5); WBC 9.7 k/uL (3.8-10.6)
[2021-07-02 20:14] LABS: Monocytes # (A) 0.4 k/uL (0-1.0)
[2021-07-02 20:22] LABS: ALT 28 U/L (4-49); AST 30 U/L (17-59); African American GFR (CKD) >90 (>60 ml/min/1.73 sqM); Albumin 4.4 g/dL (3.5-5.0); Alcohol <10 mg/dL; Alkaline Phosphatase 42 U/L (38-126); Anion Gap 8 mmol/L; Blood Urea Nitrogen 10 mg/dL (9-20); Calcium 9.6 mg/dL (8.4-10.2); Carbon Dioxide 28 mmol/L (22-30); Chloride 103 mmol/L (98-107); Glucose 104 mg/dL (74-99); Magnesium 2.2 mg/dL (1.6-2.3); Non-African American GFR(CKD) >90 (>60 ml/min/1.73 sqM); Sodium 139 mmol/L (137-145); Total Bilirubin 1.2 mg/dL (0.2-1.3); Total Protein 7.1 g/dL (6.3-8.2)
[2021-07-02 20:53] LABS: Appearance,Urine Clear (Clear); Bilirubin,Urine Negative (Negative); Blood,Urine Negative (Negative); Color,Urine Light Yellow; Glucose,Urine (UA) Negative (Negative); Ketones,Urine Trace (Negative); Leukocyte Esterase,Urine Negative (Negative); Nitrite,Urine Negative (Negative); Protein,Urine Trace (Negative); Specific Gravity,Urine 1.016 (1.001-1.035); Urobilinogen,Urine <2.0 mg/dL (<2.0)
--- NOTE | 2021-07-02 20:56 | CT ---
EXAMINATION TYPE: CT brain wo con DATE OF EXAM: 07/02/2021 COMPARISON: 05/28/2021 HISTORY: Seizure activity. No established hx. according to patient. CT DLP: 1139.4 mGycm Automated exposure control for dose reduction was used. Ventricles have normal size. There is no mass effect nor midline shift. There is no sign of intracran ial hemorrhage. Calvarium is intact. There is normal aeration of the mastoid sinuses. IMPRESSION: Negative CT scan of the brain. No change compared to old exam.
[2021-07-02 21:05] LABS: Amphetamine Screen,Urine Not Detected (NotDetected); Barbiturate Screen,Urine Not Detected (NotDetected); Benzodiazepines Screen,Urine Not Detected (NotDetected); Cocaine Screen,Urine Not Detected (NotDetected); Methadone Screen, Urine Not Detected (NotDetected); Opiate Screen,Urine Detected (NotDetected); Oxycodone Screen, Urine Detected (NotDetected); Phencyclidine Screen,Urine Not Detected (NotDetected); Tricyclic Antidepressant,Urine Not Detected (NotDetected); Urn Cannabinoid Scrn Detected (NotDetected)
[2021-07-02 21:23] VITALS: BP 104/60; PULSE 59; RESP 16
== END 2021-07-02 21:24 | disposition home or self-care (01) ==
LOC: EC 17:33
DX: R56.9 Unspecified convulsions (principal); K21.9 Gastro-esophageal reflux disease without esophagitis; F17.290 Nicotine dependence, other tobacco product, uncomplicated; F12.90 Cannabis use, unspecified, uncomplicated
CPT/HCPCS: 99285; 96374; 96361; 36415; 93005; 80053; 83735; 85025; 81003; 80306; 80320; 70450; J1953

== ENCOUNTER 2021-08-12 08:20 | Emergency (ER) | payer MEDICAID ==
[2021-08-12 08:30] VITALS: BP 121/99; PULSE 105; RESP 19; TEMP 99.6
--- NOTE | 2021-08-12 08:37 | ED ---
General Adult HPI - General Chief complaint: Headache Stated complaint: possible overdose Time Seen by Provider: 08/12/21 08:21 Source: patient, EMS Mode of arrival: EMS Limitations: no limitations - History of Present Illness Initial comments: Dictation was produced using [employer] dictation software. please excuse any grammatical, word or spelling errors. Chief Complaint: 26-year-old male presents emergency department for opiate overdose History of Present Illness: 6-year-old male who is brought in by EMS for alleged opiate overdose. He was found unresponsive with pinpoint pupils. [facility] police administered Narcan and patient awoke in. Patient states she has a mild headache. He wants to be discharge. Does not want to be evaluated. Patient states he takes opiate pills. Patient is not homicidal nonsuicidal. The ROS documented in this emergency department record has been reviewed and confirmed by me. Those systems with pertinent positive or negative responses have been documented in the HPI. All other systems are other negative and/or noncontributory. PHYSICAL EXAM: General Impression: Alert and oriented x3, not in acute distress, uncooperative HEENT: Normocephalic atraumatic, extra-ocular movements intact, pupils equal and reactive to light bilaterally, mucous membranes moist. Cardiovascular: Heart regular rate and rhythm Chest: Able to complete full sentences, no retractions, no tachypnea Abdomen: abdomen soft, non-tender, non-distended, no organomegaly Musculoskeletal: Pulses present and equal in all extremities, no peripheral edema Motor: no focal deficits noted Neurological: CN II-XII grossly intact, no focal motor or sensory deficits noted Skin: Intact with no visualized rashes Psych: Normal affect and mood ED course: 26-year-old male presents to the emergency department for clinical presentation concerning for opiate overdose. Vital signs upon arrival are within acceptable limits. Patient requested to leave. He wants to leave AGAINST MEDICAL ADVICE. Risk and benefits were discussed with the patient. Told that he requires hospital observation due to concerns of opiate toxicity once the Narcan wears off. Patient does not want stay states he just wants to go home. Patient understands that by going home he could stop breathing which could ultimately lead to morbidity and mortality. Patient is understandable. Patient will sign AMA papers. - Related Data Previous Rx's Medication Instructions Recorded cefaDROXiL [Duricef] 1 gm PO DAILY #10 tablet 05/29/21 traMADol HCl [Ultram] 50 mg PO Q6H PRN #18 tab 05/29/21 levETIRAcetam [Keppra] 500 mg PO Q12HR #60 tab 07/02/21 Allergies Allergy/AdvReac Type Severity Reaction Status Date / Time No Known Allergies Allergy Verified 07/02/21 18:20 Review of Systems ROS Statement: Those systems with pertinent positive or pertinent negative responses have been documented in the HPI. ROS Other: All systems not noted in ROS Statement are negative. Past Medical History Past Medical History: GERD/Reflux History of Any Multi-Drug Resistant Organisms: None Reported Past Surgical History: No Surgical Hx Reported Past Anesthesia/Blood Transfusion Reactions: No Reported Reaction Additional Past Anesthesia/Blood Transfusion Reaction / Comment(s): "has never had any sx Past Psychological History: No Psychological Hx Reported Smoking Status: Vaper Past Alcohol Use History: Occasional Past Drug Use History: Marijuana, Opiates, Prescription Drug Abuse - Past Family History Father Family Medical History: No Reported History Mother Family Medical History: Asthma, Hypertension General Exam Limitations: no limitations Course Vital Signs 08/12/21 08:26 Temperature 99.6 F Pulse Rate 105 H Respiratory 19 Rate Blood Pressure 121/99 O2 Sat by Pulse 97 Oximetry Disposition Clinical Impression: Overdose Disposition: Left Against Medical Advice Condition: Fair Instructions (If sedation given, give patient instructions): Prescription Narcotic Overdose (ED) Is patient prescribed a controlled substance at d/c from ED?: No Referrals: Ttio Starkey MD [Primary Care Provider] - 1-2 days
== END 2021-08-12 08:34 | disposition left against medical advice (07) ==
LOC: EC 08:20
DX: T40.601A Poisoning by unspecified narcotics, accidental (unintentional), initial encounter (principal); F17.290 Nicotine dependence, other tobacco product, uncomplicated
CPT/HCPCS: 99284

== ENCOUNTER 2021-08-27 12:47 | Emergency (ER) | payer MEDICAID ==
[2021-08-27 13:28] VITALS: RESP 18; TEMP 98.3
[2021-08-27] MEDS ORDERED: NALOXONE 0.4 MG/ML 1 ML VIAL IVP STA (14:31)
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
[2021-08-27 15:06] VITALS: BP 119/97; PULSE 79
== END 2021-08-27 15:07 | disposition home or self-care (01) ==
LOC: EC 12:47
DX: T40.2X1A Poisoning by other opioids, accidental (unintentional), initial encounter (principal); K21.9 Gastro-esophageal reflux disease without esophagitis; F17.200 Nicotine dependence, unspecified, uncomplicated; F12.90 Cannabis use, unspecified, uncomplicated
CPT/HCPCS: 99284; 96374; J2310

== ENCOUNTER 2023-10-19 20:55 | Emergency (ER) | payer MEDICAID, OTHER ==
[2023-10-19 21:45] VITALS: BP 127/75; PULSE 59; TEMP 97.7
[2023-10-19 21:52] LABS: Basophils % (A) 0 %; Eosinophils # (A) 0.1 k/uL (0-0.7); Eosinophils % (A) 1 %; HCT 46.4 % (39.0-53.0); HGB 16.7 gm/dL (13.0-17.5); Lymphocytes # (A) 1.2 k/uL (1.0-4.8); Lymphocytes % (A) 14 %; MCH 32.6 pg (25.0-35.0); MCV 90.5 fL (80.0-100.0); Mean Platelet Volume 7.9; Monocytes # (A) 0.2 k/uL (0-1.0); Monocytes % (A) 2 %; Neutrophils # (A) 7.3 k/uL (1.3-7.7); Neutrophils % (A) 82 %; Platelet Count 315 k/uL (150-450); RBC 5.13 m/uL (4.30-5.90); RDW 11.8 % (11.5-15.5); WBC 8.9 k/uL (3.8-10.6)
[2023-10-19 22:03] LABS: ALT 16 U/L (4-49); AST 18 U/L (17-59); African American GFR (CKD) >90 (>60 ml/min/1.73 sqM); Albumin 5.4 g/dL (3.5-5.0); Alkaline Phosphatase 52 U/L (38-126); Amylase 70 U/L (30-110); Anion Gap 10 mmol/L; Blood Urea Nitrogen 16 mg/dL (9-20); Calcium 10.3 mg/dL (8.4-10.2); Carbon Dioxide 29 mmol/L (22-30); Chloride 102 mmol/L (98-107); Glucose 134 mg/dL (74-99); Lipase 102 U/L (23-300); Non-African American GFR(CKD) >90 (>60 ml/min/1.73 sqM); Potassium 4.4 mmol/L (3.5-5.1); Sodium 141 mmol/L (137-145); Total Bilirubin 1.4 mg/dL (0.2-1.3); Total Protein 8.8 g/dL (6.3-8.2)
[2023-10-19 22:26] LABS: Appearance,Urine Cloudy (Clear); Bilirubin,Urine Negative (Negative); Blood,Urine Negative (Negative); Color,Urine Yellow; Glucose,Urine (UA) Negative (Negative); Ketones,Urine Negative (Negative); Leukocyte Esterase,Urine Negative (Negative); Mucus,Urine Many /hpf; Nitrite,Urine Negative (Negative); Protein,Urine 1+ (Negative); Specific Gravity,Urine 1.034 (1.001-1.035); WBC,Urine 9 /hpf (0-5)
[2023-10-19 22:48] LABS: Amphetamine Screen,Urine Not Detected (NotDetected); Barbiturate Screen,Urine Not Detected (NotDetected); Benzodiazepines Screen,Urine Detected (NotDetected); Cocaine Screen,Urine Detected (NotDetected); Methadone Screen, Urine Not Detected (NotDetected); Opiate Screen,Urine Detected (NotDetected); Oxycodone Screen, Urine Not Detected (NotDetected); Phencyclidine Screen,Urine Not Detected (NotDetected); Tricyclic Antidepressant,Urine Not Detected (NotDetected); Urn Cannabinoid Scrn Detected (NotDetected)
[2023-10-19 22:51] VITALS: RESP 16
--- NOTE | 2023-10-19 23:14 | ED ---
Abdominal Pain HPI - General Chief Complaint: Abdominal Pain Stated Complaint: Abd Pain Time Seen by Provider: 10/19/23 23:14 Source: patient Mode of arrival: ambulatory Limitations: no limitations - History of Present Illness Initial Comments: 28-year-old male presenting with chief complaint of nausea and vomiting. Also admits to diffuse abdominal discomfort. I am told that the patient is detoxing from opioids, however his urine is still positive for opioids as well as THC and benzodiazepines and cocaine. Patient states that he has had episodes like these in the past, he is requesting dilaudid by name stating that this is what he was given the last time he came here with the same complaints. No fever, chills, chest pain, difficulty breathing, hematemesis, hematochezia. - Related Data Home Medications Medication Instructions Recorded Confirmed busPIRone HCl [Buspar] 10 mg PO TID 08/27/21 08/27/21 traZODone HCL [Desyrel] 100 mg PO HS PRN 08/27/21 08/27/21 Previous Rx's Medication Instructions Recorded Ondansetron Odt [Zofran Odt] 4 mg PO Q8HR PRN #20 tab 10/20/23 Allergies Allergy/AdvReac Type Severity Reaction Status Date / Time No Known Allergies Allergy Verified 08/27/21 14:08 Review of Systems ROS Statement: Those systems with pertinent positive or pertinent negative responses have been documented in the HPI. ROS Other: All systems not noted in ROS Statement are negative. Past Medical History Past Medical History: GERD/Reflux History of Any Multi-Drug Resistant Organisms: None Reported Past Surgical History: No Surgical Hx Reported Past Anesthesia/Blood Transfusion Reactions: No Reported Reaction Additional Past Anesthesia/Blood Transfusion Reaction / Comment(s): "has never had any sx Past Psychological History: No Psychological Hx Reported Smoking Status: Vaper Past Alcohol Use History: Occasional Past Drug Use History: Marijuana, Opiates, Prescription Drug Abuse - Past Family History Father Family Medical History: No Reported History Mother Family Medical History: Asthma, Hypertension General Exam - General Exam Comments Initial Comments: Visual Physical Exam Vital signs reviewed General: Well-appearing, nontoxic, no acute distress. Head: Normocephalic, atraumatic Eyes: PERRLA, EOMI ENT: Airway patent Chest: Nonlabored breathing Skin: No visual rash, normal skin tone Neuro: Alert and oriented 3 Musculoskeletal: No gross abnormalities Limitations: no limitations General appearance: alert, in no apparent distress Head exam: Present: atraumatic, normocephalic Eye exam: Present: normal appearance, EOMI Neck exam: Present: normal inspection Respiratory exam: Present: normal lung sounds bilaterally. Absent: respiratory distress, wheezes, rales, rhonchi, stridor Cardiovascular Exam: Present: regular rate, normal rhythm, normal heart sounds. Absent: systolic murmur, diastolic murmur, rubs, gallop, clicks GI/Abdominal exam: Present: soft. Absent: distended, tenderness, guarding, rebound, rigid Neurological exam: Present: alert, oriented X3 Psychiatric exam: Present: normal affect, normal mood Skin exam: Present: warm, dry Course Vital Signs 10/19/23 21:23 Temperature 97.7 F Pulse Rate 59 L Respiratory 16 Rate Blood Pressure 127/75 O2 Sat by Pulse 99 Oximetry Medical Decision Making - Medical Decision Making Was pt. sent in by a medical professional or institution (, PA, BREAKFAST MANAGER, urgent care, hospital, or halfway...) When possible be specific @ -No Did you speak to anyone other than the patient for history (EMS, parent, family, police, friend...)? What history was obtained from this source @ -No Did you review nursing and triage notes (agree or disagree)? Why? @ -I reviewed and agree with nursing and triage notes Were old charts reviewed (outside hosp., previous admission, EMS record, old EKG, old radiological studies, urgent care reports/EKG's, halfway records)? Report findings @ -No old charts were reviewed Differential Diagnosis (chest pain, altered mental status, abdominal pain women, abdominal pain men, vaginal bleeding, weakness, fever, dyspnea, syncope, headache, dizziness, GI bleed, back pain, seizure, CVA, palpatations, mental health, musculoskeletal)? @ -[facility] Differential Abdominal Pain Men: Appendicitis, cholecystitis, diverticulosis, ischemic bowel, pancreatitis, hepatitis, UTI, gastroenteritis, AAA, incarcerated hernia, bowel obstruction, constipation, inflammatory bowel, hepatitis, peptic ulcer disease, splenic infarction, perforated viscus, testicular torsion... This is not meant to be an all-inclusive list EKG interpreted by me (3pts min.). @ -As above X-rays interpreted by me (1pt min.). @ -None done CT interpreted by me (1pt min.). @ -None done U/S interpreted by me (1pt. min.). @ -None done What testing was considered but not performed or refused? (CT, X-rays, U/S, labs)? Why? @ -None What meds were considered but not given or refused? Why? @ -None Did you discuss the management of the patient with other professionals (professionals i.e. , PA, BREAKFAST MANAGER, lab, RT, psych nurse, social media senior associate, bistro attendant, teacher, chief resource officer, case folder)? Give summary @ -No Was smoking cessation discussed for >3mins.? @ -No Was critical care preformed (if so, how long)? @ -No Were there social determinants of health that impacted care today? How? (Homelessness, low income, unemployed, alcoholism, drug addiction, tr ansportation, low edu. Level, literacy, decrease access to med. care, snf, rehab)? @ -Polysubstance abuse Was there de-escalation of care discussed even if they declined (Discuss DNR or withdrawal of care, Hospice)? DNR status @ -No What co-morbidities impacted this encounter? (DM, HTN, Smoking, COPD, CAD, Cancer, CVA, ARF, Chemo, Hep., AIDS, mental health diagnosis, sleep apnea, morbid obesity)? @ -None Was patient admitted / discharged? Hospital course, mention meds given and ro rti, prescriptions, significant lab abnormalities, going to OR and other pertinent info. @ -28-year-old male presenting with chief complaint of nausea and vomiting and diffuse abdominal discomfort. Triage noted that the patient is currently withdrawing from opioids, urine toxicology is positive for opiates, benzodiazepines, cocaine, and THC. Lab work shows no leukocytosis or anemia. Amylase and lipase are WNL. Vital signs are stable and patient is showing no acute signs of distress. Patient will be discharged home. Patient was agitated and requesting Dilaudid by name. I informed the patient that his urine toxicology is positive for opiates and we will not be giving opiates at this visit. He is given Toradol and Zofran. Follow-up with PCP. Report back to ER with any new or worsening symptoms. Discussed return parameters and answered all questions. Patient conveyed verbal understanding and agreed to the plan. I discussed this case in detail with my attending Dr. Munson Undiagnosed new problem with uncertain prognosis? @ -No Drug Therapy requiring intensive monitoring for toxicity (Heparin, Nitro, Insulin, Cardizem)? @ -No Were any procedures done? @ -No Diagnosis/symptom? @ -Abdominal pain, polysubstance abuse Acute, or Chronic, or Acute on Chronic? @ -Acute Uncomplicated (without systemic symptoms) or Complicated (systemic symptoms)? @ -uncomplicated Side effects of treatment? @ -No Exacerbation, Progression, or Severe Exacerbation? @ -No Poses a threat to life or bodily function? How? (Chest pain, [place], ND, pneumonia, PE, COPD, DKA, ARF, appy, cholecystitis, CVA, Diverticulitis, Homicidal, Suicidal, threat to staff... and all critical care pts) @ -Continued polysubstance abuse does pose a threat, patient is advised on drug cessation - Lab Data Result diagrams: 10/19/23 21:28 10/19/23 21:28 Lab Results 10/19/23 10/19/23 10/19/23 Range/Units 21:28 21:28 21:28 WBC 8.9 (3.8-10.6) k/uL RBC 5.13 (4.30-5.90) m/uL Hgb 16.7 (13.0-17.5) gm/dL Hct 46.4 (39.0-53.0) % MCV 90.5 (80.0-100.0) fL MCH 32.6 (25.0-35.0) pg MCHC 36.0 (31.0-37.0) g/dL RDW 11.8 (11.5-15.5) % Plt Count 315 (150-450) k/uL MPV 7.9 Neutrophils % 82 % Lymphocytes % 14 % Monocytes % 2 % Eosinophils % 1 % Basophils % 0 % Neutrophils # 7.3 (1.3-7.7) k/uL Lymphocytes # 1.2 (1.0-4.8) k/uL Monocytes # 0.2 (0-1.0) k/uL Eosinophils # 0.1 (0-0.7) k/uL Basophils # 0.0 (0-0.2) k/uL Sodium 141 (137-145) mmol/L Potassium 4.4 (3.5-5.1) mmol/L Chloride 102 (98-107) mmol/L Carbon Dioxide 29 (22-30) mmol/L Anion Gap 10 mmol/L BUN 16 (9-20) mg/dL Creatinine 0.91 (0.66-1.25) mg/dL Est GFR (CKD-EPI)AfAm >90 (>60 ml/min/1.73 sqM) Est GFR (CKD-EPI)NonAf >90 (>60 ml/min/1.73 sqM) Glucose 134 H (74-99) mg/dL Calcium 10.3 H (8.4-10.2) mg/dL Total Bilirubin 1.4 H (0.2-1.3) mg/dL AST 18 (17-59) U/L ALT 16 (4-49) U/L Alkaline Phosphatase 52 (38-126) U/L Total Protein 8.8 H (6.3-8.2) g/dL Albumin 5.4 H (3.5-5.0) g/dL Amylase 70 (30-110) U/L Lipase 102 (23-300) U/L Urine Color Yellow Urine Appearance Cloudy (Clear) Urine pH 6.0 (5.0-8.0) Ur Specific [place] 1.034 (1.001-1.035) Urine Protein 1+ H (Negative) Urine Glucose (UA) Negative (Negative) Urine Ketones Negative (Negative) Urine Blood Negative (Negative) Urine Nitrite Negative (Negative) Urine Bilirubin Negative (Negative) Urine Urobilinogen 2.0 (<2.0) mg/dL Ur Leukocyte Esterase Negative (Negative) Urine WBC 9 H (0-5) /hpf Urine Mucus Many H (None) /hpf Urine Opiates Screen Detected H (NotDetected) Ur Oxycodone Screen Not Detected (NotDetected) Urine Methadone Screen Not Detected (NotDetected) Ur Barbiturates Screen Not Detected (NotDetected) U Tricyclic Antidepress Not Detected (NotDetected) Ur Phencyclidine Scrn Not Detected (NotDetected) Ur Amphetamines Screen Not Detected (NotDetected) U Methamphetamines Scrn Not Detected (NotDetected) U Benzodiazepines Scrn Detected H (NotDetected) Urine Cocaine Screen Detected H (NotDetected) U Marijuana (THC) Screen Detected H (NotDetected) Disposition Clinical Impression: Polysubstance abuse, Abdominal pain Disposition: HOME SELF-CARE Condition: Fair Instructions (If sedation given, give patient instructions): Abdominal Pain (ED), Polysubstance Abuse (ED) Additional Instructions: follow-up with PCP. Report back to ER with any new or worsening symptoms. Prescriptions: Ondansetron Odt [Zofran Odt] 4 mg PO Q8HR PRN #20 tab PRN Reason: Nausea Is patient prescribed a controlled substance at d/c from ED?: No Referrals: Tito Starkey MD [Primary Care Provider] - 1-2 days Time of Disposition: 02:48
[2023-10-20] MEDS ORDERED: ONDANSETRON ODT 4 MG TAB PO STA (02:46)
[2023-10-20] MEDS ORDERED: KETOROLAC 15 MG/ML 1 ML VIAL IM STA (02:46)
== END 2023-10-20 03:05 | disposition home or self-care (01) ==
LOC: EC 20:55
DX: R10.84 Generalized abdominal pain (principal); F19.10 Other psychoactive substance abuse, uncomplicated; F17.290 Nicotine dependence, other tobacco product, uncomplicated; F12.90 Cannabis use, unspecified, uncomplicated; F11.90 Opioid use, unspecified, uncomplicated
CPT/HCPCS: 36415; 80053; 82150; 83690; 85025; 81001; 80306; 99284; 96372; J1885

== ENCOUNTER 2024-02-07 00:25 | Inpatient (IN) | payer OTHER ==
[2024-02-07] MEDS: PROPARACAINE 0.5% OPHTH DROPS 15 ML BTL RIGHT EYE STA (01:30)
[2024-02-07] MEDS: FLUORESCEIN STRIPS 1 MG STRIP RIGHT EYE ONE (01:30)
[2024-02-07] MEDS ORDERED: VANCOMYCIN 1,000 MG in SODIUM CHLORIDE 0.9% 250 ML IVPB STA (01:48)
[2024-02-07] MEDS ORDERED: VANCOMYCIN IV PER PHARMACY 1 EACH MISC MISCELLANE PRN (01:52)
--- NOTE | 2024-02-07 02:02 | ED ---
Eye Problem HPI - General Source: patient, RN notes reviewed Mode of arrival: ambulatory Limitations: no limitations <Kunal Desai - Last Filed: 02/07/24 04:21> - History of Present Illness MD chief complaint: vision change (Blurry vision) -: hour(s) Onset Description: gradual Location: left eye Place: home If Injury: none Eye Symptoms: foreign body sensation, itching, blurry vision Severity: severe Severity scale (1-10): 10 Consistency: constant Associated Symptoms: none Treatments Prior to Arrival: none <Yasir Rivera - Last Filed: 02/07/24 05:04> - General Chief complaint: Eye Problems Stated complaint: Left eye issues Time Seen by Provider: 02/07/24 01:13 - History of Present Illness Initial comments: 28-year-old male presented to the ED with a chief complaint of eye problem. Patient is at [place]. He is there for opiate and cocaine use. He admits to snorting these drugs however denies IV drug use. Patient states that he was "chilling on the couch" at 9 PM when all of a sudden started to experience double vision and noticed that his left eye was turned inward. No fever or chills. Has otherwise been doing okay over the past few days. No chest pains or shortness of breath. No new rashes. No vision loss. No other complaints at this time. (Kunal Desai) This is a 28-year-old male to the ER for evaluation. Patient has left eye inward deviation with inability to look peripherally or to the left lateral with the left eye. Blurry vision is his main complaint (Yasir Rivera) - Related Data Home Medications Medication Instructions Recorded Confirmed busPIRone HCl [Buspar] 10 mg PO TID 08/27/21 08/27/21 traZODone HCL [Desyrel] 100 mg PO HS PRN 08/27/21 08/27/21 Previous Rx's Medication Instructions Recorded Ondansetron Odt [Zofran Odt] 4 mg PO Q8HR PRN #20 tab 10/20/23 Allergies Allergy/AdvReac Type Severity Reaction Status Date / Time No Known Allergies Allergy Verified 02/07/24 00:41 Review of Systems ROS Other: All systems not noted in ROS Statement are negative. <Kunal Desai - Last Filed: 02/07/24 04:21> ROS Other: All systems not noted in ROS Statement are negative. <Yasir Rivera - Last Filed: 02/07/24 05:04> ROS Statement: Those systems with pertinent positive or pertinent negative responses have been documented in the HPI. Past Medical History Past Medical History: GERD/Reflux History of Any Multi-Drug Resistant Organisms: None Reported Past Surgical History: No Surgical Hx Reported Past Anesthesia/Blood Transfusion Reactions: No Reported Reaction Additional Past Anesthesia/Blood Transfusion Reaction / Comment(s): "has never had any sx Past Psychological History: No Psychological Hx Reported Smoking Status: Vaper Past Alcohol Use History: Occasional Past Drug Use History: Marijuana, Opiates, Prescription Drug Abuse - Past Family History Father Family Medical History: No Reported History Mother Family Medical History: Asthma, Hypertension <Kunal Desai - Last Filed: 02/07/24 04:21> General Exam Limitations: no limitations General appearance: alert, in no apparent distress Eye exam: Present: PERRL, other (Left 6th cranial nerve palsy) Neck exam: Present: normal inspection Respiratory exam: Present: normal lung sounds bilaterally Cardiovascular Exam: Present: regular rate, normal rhythm. Absent: systolic murmur, diastolic murmur GI/Abdominal exam: Present: soft Neurological exam: Present: alert, oriented X3, other (Patient does have a left 6th cranial nerve palsy however remainder of cranial nerve exam intact. [id number], [id number], rapid alternating hand movements intact.) Skin exam: Present: warm, dry <Kunal Desai - Last Filed: 02/07/24 04:21> Course <Yasir Rivera - Last Filed: 02/07/24 05:04> Vital Signs 02/07/24 02/07/24 02/07/24 00:40 02:20 04:31 Temperature 99.2 F Pulse Rate 56 L 57 L 58 L Respiratory 18 16 16 Rate Blood Pressure 143/84 135/79 133/82 O2 Sat by Pulse 100 99 99 Oximetry - Reevaluation(s) Reevaluation #1: 02/07/24 05:03 Records reviewed (Yasir Rivera) Reevaluation #2: 02/07/24 05:03 Patient symptoms unchanged (Yasir Rivera) Medical Decision Making - Lab Data Result diagrams: 02/07/24 02:20 02/07/24 02:20 <Kunal Desai - Last Filed: 02/07/24 04:21> - Lab Data Result diagrams: 02/07/24 02:20 02/07/24 02:20 <Yasir Rivera - Last Filed: 02/07/24 05:04> - Medical Decision Making Was pt. sent in by a medical professional or institution (, PA, TRAVELING ACCOUNTANT, urgent care, hospital, or long-term...) When possible be specific @ -No Did you speak to anyone other than the patient for history (EMS, parent, family, police, friend...)? What history was obtained from this source @ -No Did you review nursing and triage notes (agree or disagree)? Why? @ -I reviewed and agree with nursing and triage notes Were old charts reviewed (outside hosp., previous admission, EMS record, old EKG, old radiological studies, urgent care reports/EKG's, long-term records)? Report findings @ -No old charts were reviewed Differential Diagnosis (chest pain, altered mental status, abdominal pain women, abdominal pain men, vaginal bleeding, weakness, fever, dyspnea, syncope, headache, dizziness, GI bleed, back pain, seizure, CVA, palpatations, mental health, musculoskeletal)? @ -Differential Headache: Migraine, tension, cluster, carbon monoxide, central venous thrombosis, pension karma temporal arteritis, acute closure glaucoma, intercranial hemorrhage, mastoiditis, sinusitis, head injury, this is not meant to be an all-inclusive list. EKG interpreted by me (3pts min.). @ -None X-rays interpreted by me (1pt min.). @ -None done CT interpreted by me (1pt min.). @ -CT brain and CT angio brain interpreted me which revealed no evidence of acute finding. U/S interpreted by me (1pt. min.). @ -None done What testing was considered but not performed or refused? (CT, X-rays, U/S, labs)? Why? @ -None What meds were considered but not given or refused? Why? @ -None Did you discuss the management of the patient with other professionals (professionals i.e. Dr., PA, TRAVELING ACCOUNTANT, lab, RT, psych nurse, manager social work, saloonkeeper, teacher, donor relations officer, hospice case manager)? Give summary @ -No Was smoking cessation discussed for >3mins.? @ -No Was critical care preformed (if so, how long)? @ -No Were there social determinants of health that impacted care today? How? (Ho melessness, low income, unemployed, alcoholism, drug addiction, transportation, low edu. Level, literacy, decrease access to med. care, prison, rehab)? @ -No Was there de-escalation of care discussed even if they declined (Discuss DNR or withdrawal of care, Hospice)? DNR status @ -No What co-morbidities impacted this encounter? (DM, HTN, Smoking, COPD, CAD, Cancer, CVA, ARF, Chemo, Hep., AIDS, mental health diagnosis, sleep apnea, morbid obesity)? @ -None Was patient admitted / discharged? Hospital course, mention meds given and route, prescriptions, significant lab abnormalities, going to OR and other pertinent info. @ -Pending 28-year-old male presenting to the ED with acute onsets of left CN palsy with diplopia. CT brain and CT angio of the brain revealed no evidence of acute finding. Some laboratory studies have resulted however others are pending at this time. Labs including CBC CMP largely unremarkable. Case signed out to my attending physician, Dr. Rivera, for further disposition. (Kunal Desai) 28 male to ER for evaluation of what appears to be a lateral rectus palsy of the left eye (Yasir Rivera) - Lab Data Lab Results 02/07/24 02/07/24 02/07/24 Range/Units 02:20 02:20 02:20 WBC 8.1 (3.8-10.6) k/uL RBC 5.06 (4.30-5.90) m/uL Hgb 15.7 (13.0-17.5) gm/dL Hct 46.1 (39.0-53.0) % MCV 91.0 (80.0-100.0) fL MCH 31.1 (25.0-35.0) pg MCHC 34.1 (31.0-37.0) g/dL RDW 13.2 (11.5-15.5) % Plt Count 402 (150-450) k/uL MPV 7.6 Neutrophils % 63 % Lymphocytes % 27 % Monocytes % 6 % Eosinophils % 1 % Basophils % 1 % Neutrophils # 5.1 (1.3-7.7) k/uL Lymphocytes # 2.2 (1.0-4.8) k/uL Monocytes # 0.5 (0-1.0) k/uL Eosinophils # 0.1 (0-0.7) k/uL Basophils # 0.1 (0-0.2) k/uL Sodium 145 (137-145) mmol/L Potassium 4.3 (3.5-5.1) mmol/L Chloride 107 (98-107) mmol/L Carbon Dioxide 24 (22-30) mmol/L Anion Gap 14 mmol/L BUN 24 H (9-20) mg/dL Creatinine 0.81 (0.66-1.25) mg/dL Est GFR (CKD-EPI)AfAm >90 (>60 ml/min/1.73 sqM) Est GFR (CKD-EPI)NonAf >90 (>60 ml/min/1.73 sqM) Glucose 112 H (74-99) mg/dL Plasma Lactic Acid [place] 1.4 (0.7-2.0) mmol/L Calcium 10.1 (8.4-10.2) mg/dL Total Bilirubin 1.3 (0.2-1.3) mg/dL AST 20 (17-59) U/L ALT 23 (4-49) U/L Alkaline Phosphatase 56 (38-126) U/L Total Protein 8.7 H (6.3-8.2) g/dL Albumin 5.1 H (3.5-5.0) g/dL Disposition <Kunal Desai - Last Filed: 02/07/24 04:21> Is patient prescribed a controlled substance at d/c from ED?: No <Yasir Rivera - Last Filed: 02/07/24 05:04> Clinical Impression: Lateral rectus palsy Disposition: ADMITTED IP TO THIS HOSP Condition: Serious Referrals: Tito Starkey MD [Primary Care Provider] - 1-2 days
[2024-02-07 02:43] LABS: Basophils # (A) 0.1 k/uL (0-0.2); Basophils % (A) 1 %; Eosinophils # (A) 0.1 k/uL (0-0.7); Eosinophils % (A) 1 %; HCT 46.1 % (39.0-53.0); HGB 15.7 gm/dL (13.0-17.5); Lymphocytes # (A) 2.2 k/uL (1.0-4.8); Lymphocytes % (A) 27 %; MCH 31.1 pg (25.0-35.0); MCHC 34.1 g/dL (31.0-37.0); Mean Platelet Volume 7.6; Monocytes # (A) 0.5 k/uL (0-1.0); Monocytes % (A) 6 %; Neutrophils # (A) 5.1 k/uL (1.3-7.7); Neutrophils % (A) 63 %; Platelet Count 402 k/uL (150-450); RBC 5.06 m/uL (4.30-5.90); RDW 13.2 % (11.5-15.5); WBC 8.1 k/uL (3.8-10.6)
[2024-02-07] MEDS: VANCOMYCIN 1,500 MG in SODIUM CHLORIDE 0.9% 500 ML 500 ML IVPB STA (02:55)
[2024-02-07 03:31] LABS: ALT 23 U/L (4-49); AST 20 U/L (17-59); African American GFR (CKD) >90 (>60 ml/min/1.73 sqM); Albumin 5.1 g/dL (3.5-5.0); Alkaline Phosphatase 56 U/L (38-126); Anion Gap 14 mmol/L; Blood Urea Nitrogen 24 mg/dL (9-20); Calcium 10.1 mg/dL (8.4-10.2); Carbon Dioxide 24 mmol/L (22-30); Chloride 107 mmol/L (98-107); Glucose 112 mg/dL (74-99); Non-African American GFR(CKD) >90 (>60 ml/min/1.73 sqM); Potassium 4.3 mmol/L (3.5-5.1); Sodium 145 mmol/L (137-145); Total Bilirubin 1.3 mg/dL (0.2-1.3); Total Protein 8.7 g/dL (6.3-8.2)
--- NOTE | 2024-02-07 04:15 | CT ---
EXAM: CT Head Without Intravenous Contrast CLINICAL HISTORY: ITS.REASON CT Reason: acute l esotropia hx opiate snorting TECHNIQUE: Axial computed tomography images of the head/brain without intravenous contrast. CTDI is 57.4 mGy and DLP is 1081.6 mGy-cm. This CT exam was performed using one or more of the following dose reduction techniques: automated exposure control, adjustment of the mA and/or kV according to patient size, and/or use of iterative reconstruction technique. COMPARISON: No relevant prior studies available. FINDINGS: Brain: No hemorrhage or mass effect. Ventricles: No hydrocephalus. Bones/joints: Unremarkable. Soft tissues: Unremarkable. Sinuses: No air fluid level. Mastoid air cells: Clear. IMPRESSION: No acute hemorrhage, hydrocephalus, or mass effect.
--- NOTE | 2024-02-07 04:16 | CT ---
EXAM: CT Angiography Head With Intravenous Contrast CLINICAL HISTORY: ITS.REASON CT Reason: acute L esotropia hx snorting drugs TECHNIQUE: Axial computed tomographic angiography images of the head with intravenous contrast. CTDI is 277.6 mGy and DLP is 2153.1 mGy-cm. This CT exam was performed using one or more of the following dose reduction techniques: automated exposure control, adjustment of the mA and/or kV according to patient size, and/or use of iterative reconstruction technique. MIP reconstructed images were created and reviewed. COMPARISON: No relevant prior studies available. FINDINGS: Right internal carotid artery: No significant stenosis. No aneurysm. Right anterior cerebral artery: No significant stenosis. No aneurysm. Right middle cerebral artery: No significant stenosis. No aneurysm. Right posterior cerebral artery: No significant stenosis. No aneurysm. Right vertebral artery: Unremarkable. Left internal carotid artery: No significant stenosis. No aneurysm. Left anterior cerebral artery: No significant stenosis. No aneurysm. Left middle cerebral artery: No significant stenosis. No aneurysm. Left posterior cerebral artery: No significant stenosis. No aneurysm. Left vertebral artery: Unremarkable. Basilar artery: No significant stenosis. No aneurysm. IMPRESSION: No significant stenosis.
[2024-02-07] MEDS ORDERED: NALOXONE 0.4 MG/ML 1 ML VIAL IV PRN (05:04)
[2024-02-07] MEDS: SODIUM CHLORIDE 0.9% 1,000 ML IV SCH (06:09)
[2024-02-07] MEDS: cefTRIAXone IN SWFI 1,000 MG/10 ML SYRINGE IVP STA (06:09)
[2024-02-07 06:13] LABS: Appearance,Urine Clear (Clear); Bilirubin,Urine Negative (Negative); Blood,Urine Negative (Negative); Color,Urine Yellow; Glucose,Urine (UA) Negative (Negative); Ketones,Urine Negative (Negative); Leukocyte Esterase,Urine Negative (Negative); Nitrite,Urine Negative (Negative); Protein,Urine Trace (Negative); Specific Gravity,Urine 1.041 (1.001-1.035); Urobilinogen,Urine <2.0 mg/dL (<2.0)
[2024-02-07] MEDS: VANCOMYCIN 1,500 MG in SODIUM CHLORIDE 0.9% 500 ML 500 ML IVPB SCH (10:25)
[2024-02-07 11:04] LABS: Erythrocyte Sedimentation Rate 26 mm/Hr (0-15)
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
[2024-02-07] MEDS: traZODone HCL 50 MG TAB PO SCH (22:04)
[2024-02-07] MEDS: ONDANSETRON 4 MG/2 ML VIAL IVP PRN (23:27)
--- NOTE | 2024-02-08 00:14 | P.HPIM ---
History of Present Illness H&P Date: 02/07/24 Chief Complaint: Blurry vision Patient is a 28-year-old male with known history of opiate use disorder and cocaine snorting who is currently at rehab presents to the hospital due to blurry vision. Patient states that he was sitting on the couch around 9 PM yesterday and christiano kitchen started having double vision and noticed his left eye was not turning inwards. Denies any headache. No fever no chills. Patient immediately notified the staff and EMS was called and patient was brought to the hospital. Patient was able to see with 1 eye closed. He was also complaining of itching in the left eye and also felt like foreign body sensation in the eye. Denies any recent illnesses. CT head showed no acute hemorrhage, hydrocephalus or mass effect. CTA head showed no significant stenosis. Laboratory pressure WBC 8.1 hemoglobin 15.7 and platelets 402 ESR 26 Sodium 144 potassium 4.3 chloride 107 bicarb is 24 BUN 24 and creatinine 0.81 and blood sugar 112 B12 folate and TSH within normal limits. Urinalysis negative for infection. Treponema pallidum antibody nonreactive. Review of Systems Constitutional: Patient denies any fever or chills . No generalized weakness or weight loss. Abdomen: Patient denied nausea vomiting and diarrhea and abdominal pain. Cardiovascular: Patient denies any chest pain or short of breath no palpitations. Respiratory: patient denied any cough is from production. No shortness of breath Neurologic: Patient denied any numbness or tingling headache. Blurry vision/double vision Musculoskeletal: Patient denies any complaints of joint swelling or deformity. Skin: Negative Psychiatric: Negative Endocrine: No heat or cold intolerance. No recent weight gain. Genitourinary: No dysuria or hematuria. All other 14 point ROS negative except the above Past Medical History Past Medical History: GERD/Reflux History of Any Multi-Drug Resistant Organisms: None Reported Past Surgical History: No Surgical Hx Reported Past Anesthesia/Blood Transfusion Reactions: No Reported Reaction Additional Past Anesthesia/Blood Transfusion Reaction / Comment(s): "has never had any sx Past Psychological History: No Psychological Hx Reported Smoking Status: Vaper Past Alcohol Use History: Occasional Past Drug Use History: Marijuana, Opiates, Prescription Drug Abuse - Past Family History Father Family Medical History: No Reported History Mother Family Medical History: Asthma, Hypertension Medications and Allergies Home Medications Medication Instructions Recorded Confirmed Type No Known Home Medications 02/07/24 02/07/24 History Allergies Allergy/AdvReac Type Severity Reaction Status Date / Time No Known Allergies Allergy Verified 02/07/24 07:28 Physical Exam Vitals: Vital Signs Temp Pulse Resp BP Pulse Ox 02/07/24 04:31 58 L 16 133/82 99 02/07/24 02:20 57 L 16 135/79 99 02/07/24 00:40 99.2 F 56 L 18 143/84 100 Intake and Output 02/06/24 02/07/24 02/07/24 22:59 06:59 14:59 Other: Weight 81.647 kg PHYSICAL EXAMINATION: Patient is lying in the bed comfortably, no acute distress, awake alert and oriented.. HEENT: Normocephalic. Neck is supple. Pupils reactive. Nostrils clear. Oral cavity is moist. Neck reveals no JVD, carotid bruits, or thyromegaly. CHEST EXAMINATION: Trachea is central. Symmetrical expansion. Lung smith clear to auscultation and percussion. CARDIAC: Normal S1, S2 with no gallops. No murmurs ABDOMEN: Soft. Bowel sounds normal. No organomegaly. No abdominal bruits. Extremities: reveal no edema. No clubbing or cyanosis Neurologically awake, alert, oriented x3 with well-coordinated movements. Patient does have left rectus palsy Skin: No rash or skin lesions. Psychiatric: Coperative. Nonsuicidal Musculoskeletal: No joint swelling or deformity. Normal range of motion. Results CBC & Chem 7: 02/07/24 02:20 02/07/24 02:20 Labs: Abnormal Lab Results - Last 24 Hours (Table) 02/07/24 02/07/24 Range/Units 02:20 05:40 BUN 24 H (9-20) mg/dL Glucose 112 H (74-99) mg/dL Total Protein 8.7 H (6.3-8.2) g/dL Albumin 5.1 H (3.5-5.0) g/dL Ur Specific [place] 1.041 H (1.001-1.035) Urine Protein Trace H (Negative) Thrombosis Risk Factor Assmnt - DVT/VTE Prophylaxis DVT/VTE Prophylaxis: Pharmacologic Prophylaxis ordered Assessment and Plan Assessment: Acute left rectus palsy. Rule out acute CVA Opiate use disorder Cocaine snorting denies any IVDU History of alcohol abuse DVT prophylaxis with heparin subcu plan: Patient will be continued on telemetry. Continue with neurochecks. B12 folate and TSH levels were ordered. 2D echocardiogram to rule out any vegetation or thrombus. CT head and CTA head and neck were negative. MRI of the brain and orbits with and without contrast was ordered as per neurology recommendations. Continue to follow closely. Patient was counseled extensively on cessation of drug use. Time with Patient: Greater than 30
[2024-02-08] MEDS: HEPARIN SODIUM,PORCINE 5,000 UNIT/ML 1 ML VIAL SQ SCH (09:14)
[2024-02-08] MEDS ORDERED: VANCOMYCIN TROUGH DUE 1 EACH MISC MISCELLANE ONE (10:00)
[2024-02-08 11:09] LABS: Basophils # (A) 0.1 k/uL (0-0.2); Basophils % (A) 1 %; Eosinophils % (A) 0 %; HCT 42.4 % (39.0-53.0); HGB 14.6 gm/dL (13.0-17.5); Lymphocytes # (A) 2.1 k/uL (1.0-4.8); Lymphocytes % (A) 28 %; MCH 31.3 pg (25.0-35.0); MCHC 34.5 g/dL (31.0-37.0); MCV 90.5 fL (80.0-100.0); Mean Platelet Volume 7.7; Monocytes # (A) 0.5 k/uL (0-1.0); Monocytes % (A) 7 %; Neutrophils # (A) 4.4 k/uL (1.3-7.7); Neutrophils % (A) 61 %; Platelet Count 386 k/uL (150-450); RBC 4.68 m/uL (4.30-5.90); WBC 7.3 k/uL (3.8-10.6)
[2024-02-08 15:06] LABS: ALT 14 U/L (10-49); AST 13 U/L (14-35); Albumin 4.7 g/dL (3.8-4.9); Albumin/Globulin Ratio 2.04 Ratio (1.60-3.17); Alkaline Phosphatase 54 U/L (41-126); BUN/Creat Ratio 22.38 Ratio (12.00-20.00); Blood Urea Nitrogen 17.9 mg/dL (9.0-27.0); Chloride 108 mmol/L (96-109); Globulin 2.3 g/dL (1.6-3.3); Glucose 107 mg/dL (70-110); Magnesium 2.3 mg/dL (1.5-2.4); Phosphorus 3.9 mg/dL (2.4-5.1); Sodium 146 mmol/L (135-145); Total Bilirubin 1.5 mg/dL (0.3-1.2)
--- NOTE | 2024-02-08 16:04 | MR ---
EXAMINATION TYPE: MR venography head wo con DATE OF EXAM: 02/08/2024 1:48 PM CLINICAL INDICATION:Male, 28 years old with history of Cavernous Venous Thrombosis; PHH, Double visio n, Head trauma COMPARISON: Same day MRI. TECHNIQUE: MRV of the brain was performed utilizing two-dimensional [id number] technique. FINDINGS: There is no evidence of venous occlusion or collateral circulation. There is no evidence of sinus th rombosis. The cavernous sinuses are poorly visualized on this evaluation and postcontrast imaging of the brain same day, no definitive evidence for cavernous sinus thrombosis. IMPRESSION: 1. No evidence of venous sinus thrombosis including the cavernous sinuses which are poorly evaluated ..
--- NOTE | 2024-02-08 16:53 | P.PN ---
Subjective Progress Note Date: 02/08/24 I am following-up with patient and he stated he diplopia has resolved yesterday. Denies any headache, nausea, vomiting, focal weakness or numbness. He feels he is doing better today. Objective - Vital Signs Vital signs: Vital Signs Temp 98.9 F 02/08/24 13:56 Pulse 48 L 02/08/24 13:56 Resp 17 02/08/24 13:56 BP 148/78 02/08/24 13:56 Pulse Ox 97 02/08/24 13:56 FiO2 Intake & Output 02/07/24 02/08/24 02/08/24 18:59 06:59 18:59 Intake Total 960 Output Total 300 Balance 660 Weight 81.647 kg Intake: Intake, IV Titration 900 Amount Sodium Chloride 0.9% 1, 900 000 ml @ 75 mls/hr IV . [id number] [id number] Rx#:[id number] Oral 60 Output: Oral Regurgitation 300 Other: # Voids 1 1 - Exam General: Lying in bed and is not in acute distress. Neuro: The patient is awake, alert, oriented to self, place and time. Is following simple commands. No aphasia or neglect. Pupils are round, equal and reactive to light bilaterally. Visual smith are full to confrontation. Primary gaze, at time felt the right eye was deviated inwards towards nose and seems more appreciable today. EOM is normal without nystagmus. With normal accomodation bilaterally.. Normal facial sensation to touch. No facial weakness. No dysarthria. Hearing is normal to hand rub bilaterally. TOngue is midline and moves side to side without difficulty. Has tongue bite over the lateral anterior on left side. Motor: Strength is 5/5 throughout. Sensation is normal. Cerebellar: Upper and lower are normal. Reflex: 2+ Plantars are mute bilaterally. Some of the work-up consisted of: Afebrile wbc is normal. ESR is 26 Plasma lactic acid vein is 1.4 Treponema Pallidum Ab is nonreactive Vitamin B12: [address] head is is no acute process. I personally reviewed CT head. CTA head and neck is unremarkable. MRI Venous is reported as no evidence of venous sinus thrombosis inlcuding the cavernous sinuses which are poorly evaluated. - Labs CBC & Chem 7: 02/08/24 10:38 02/08/24 10:38 Labs: Abnormal Lab Results - Last 24 Hours (Table) 02/08/24 Range/Units 10:38 Sodium 146 H (135-145) mmol/L Anion Gap 15.00 H (4.00-12.00) mmol/L BUN/Creatinine Ratio 22.38 H (12.00-20.00) Ratio Total Bilirubin 1.5 H (0.3-1.2) mg/dL AST 13 L (14-35) U/L Assessment and Plan Assessment: This is a 28-year-old gentleman who was send by [facility] because of left eye pain, diplopia (horizontal). It was suspected left lateral rectus palsy on presentation but on my examination patient primary gaze he has inward gaze of the right eye He uses opiates and snorts them on left nostril, with last cocaine use was 3 weeks ago. Diplopia and on my examination felt has right eye deviated inward at primary gaze multiple times. Today feels diplopia is improved Mild Partial Lateral rectus palsy. Rule out stroke Cocain use Opiate use History of alcohol use and last use was 1 year ago Plan: MR Brain and Orbit w/ and w/o: pending I ordered HIV testing, PELON, Hemoglobin A1c. Ordered 2D echo to rule out vegetation or thrombus. Ophthalmology team is consulted. Patient was counseled on cessation of drug use Will defer the rest of management to the primary team and other specialist. The plan is discussed with patient and his nurse. Time with Patient: Less than 30
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
[2024-02-09] MEDS: LORazepam 1 MG/0.5 ML VIAL IV PRN ×2 (03:22→14:12)
[2024-02-09 11:06] LABS: Blood Urea Nitrogen 18.8 mg/dL (9.0-27.0); Calcium 9.6 mg/dL (8.7-10.3); Carbon Dioxide 23.1 mmol/L (21.6-31.8); Chloride 106 mmol/L (96-109); Glucose 117 mg/dL (70-110); Potassium 4.1 mmol/L (3.5-5.5); Sodium 143 mmol/L (135-145)
[2024-02-09 13:42] VITALS: BP 125/80; PULSE 59; RESP 19; TEMP 98.8
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
[2024-02-09 15:11] LABS: HIV 2 AB Non-Reactive (Non-Reactive); HIV AB P24 Non-Reactive (Non-Reactive); HIV P24 AG Non-Reactive (Non-Reactive)
--- NOTE | 2024-02-09 19:42 | CA ---
Transthoracic Echo Report Name: Reji Felix Age: 28 Gender: M : 1995 Exam Date: 02/09/2024 07:55 Exam Location: [facility] Ht (in): 73 Wt (lb): 180 Ordering Physician: Thierno Mcgee MD Attending/Referring Phys: Network Controller Celia Graham RDCS Procedure CPT: Indications: stroke. r/o vegatation Cardiac Hx: Technical Quality: Good Contrast 1: Total Dose (mL): Contrast 2: Total Dose (mL): MEASUREMENTS (Male / Female) Normal Values 2D ECHO LV Diastolic Diameter PLAX 5.1 cm 4.2 - 5.9 / 3.9 - 5.3 cm LV Systolic Diameter PLAX 3.0 cm IVS Diastolic Thickness 0.7 cm 0.6 - 1.0 / 0.6 - 0.9 cm LVPW Diastolic Thickness 1.0 cm 0.6 - 1.0 / 0.6 - 0.9 cm LV Relative Wall Thickness 0.3 RV Internal Dim ED PLAX 3.3 cm LVOT Diameter 2.1 cm LV Diastolic Volume MOD BP 126.6 cm??? 67 - 155 / 56 - 104 cm??? LV Systolic Volume MOD BP 47.2 cm??? 22 - 58 / 19 - 49 cm??? LV Ejection Fraction MOD BP 62.7 % >= 55 % LV Cardiac Index MOD BP 1856.8 cm???/min???m??? LV Diastolic Volume MOD 4C 135.7 cm??? LV Systolic Volume MOD 4C 43.1 cm??? LV Ejection Fraction MOD 4C 68.2 % LV Cardiac Index MOD 4C 2165.1 cm???/min???m??? LV Diastolic Length 4C 9.4 cm LV Systolic Length 4C 7.4 cm LV Diastolic Volume MOD 2C 116.1 cm??? LV Systolic Volume MOD 2C 49.3 cm??? LV Ejection Fraction MOD 2C 57.6 % LV Cardiac Index MOD 2C 1562.8 cm???/min???m??? LV Diastolic Length 2C 9.6 cm LV Systolic Length 2C 7.8 cm LA Volume 59.9 cm??? 18 - 58 / 22 - 52 cm??? LA Volume Index 29.2 cm???/m??? 16 - 28 cm???/m??? DOPPLER AV Peak Velocity 140.7 cm/s AV Peak Gradient 7.9 mmHg AV Mean Velocity 92.3 cm/s AV Mean Gradient 3.9 mmHg AV Velocity Time Integral 27.2 cm LVOT Peak Velocity 126.5 cm/s LVOT Peak Gradient 6.4 mmHg LVOT Velocity Time Integral 27.0 cm LVOT Stroke Volume 96.8 cm??? LVOT Stroke Volume Index 47.0 ml/m??? LVOT Cardiac Index 2263.5 cm???/min???m??? AV Area Cont Eq vti 3.6 cm??? AV Area Cont Eq pk 3.2 cm??? MV Area PHT 4.9 cm??? Mitral E Point Velocity 74.5 cm/s Mitral A Point Velocity 42.7 cm/s Mitral E to A Ratio 1.7 MV Deceleration Time 153.8 ms TR Peak Velocity 235.4 cm/s TR Peak Gradient 22.2 mmHg PV Peak Velocity 115.5 cm/s PV Peak Gradient 5.3 mmHg FINDINGS Left Ventricle Left ventricular ejection fraction is estimated at 60-65 %. Left ventricular cavity size normal. Left ventricular wall thickness normal. No obvious regional wall motion abnormalities. Right Ventricle Borderline enlarged right ventricle with normal function. Right Atrium Normal right atrial size. Left Atrium Mildly increased left atrial volume. Mitral Valve Structurally normal mitral valve. No evidence for mitral valve prolapse. No mitral stenosis. No mitral regurgitation. Aortic Valve Trileaflet aortic valve. No aortic valve stenosis or regurgitation. Tricuspid Valve Structurally normal tricuspid valve. No tricuspid stenosis. Trace tricuspid regurgitation. Pulmonic Valve Structurally normal pulmonic valve. No pulmonic stenosis. No pulmonic regurgitation. Pericardium No pericardial effusion. Aorta Normal size aortic root and proximal ascending aorta. CONCLUSIONS Normal LV systolic function Previewed by: Dr. Vicente Phillips MD (Electronically Signed) Final Date: 09 Feb 2024 19:41
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
== END 2024-02-09 15:21 | disposition home or self-care (01) | DRG 82 ==
LOC: EC 00:25 → 5NMEDONC 05:04
PROVIDERS: ADMIT Hospitalist; ATTEND Hospitalist
DX: H49.22 Sixth [abducent] nerve palsy, left eye (principal); F10.11 Alcohol abuse, in remission; F11.10 Opioid abuse, uncomplicated; F12.10 Cannabis abuse, uncomplicated; S06.0XAS Concussion with loss of consciousness status unknown, sequela; Z28.310 Unvaccinated for COVID-19; F14.90 Cocaine use, unspecified, uncomplicated; H57.89 Other specified disorders of eye and adnexa; Z79.899 Other long term (current) drug therapy; V49.60XS Unspecified car occupant injured in collision with unspecified motor vehicles in traffic accident, sequela; W22.1 Striking against or struck by automobile airbag
CPT/HCPCS: 36415; 70450; 70496; 70543; 70544; 70553; 80048; 80053; 81003; 82607; 82746; 83036; 83605; 83735; 84100; 84443; 85025; 85652; 86038; 86780; 87040; 87390; 93306; 96365; 96366; 96375; 99285

== ENCOUNTER 2024-05-29 19:44 | Emergency (ER) | payer BC, OTHER ==
[2024-05-29 19:54] VITALS: RESP 18; TEMP 98
--- NOTE | 2024-05-29 20:37 | ED ---
Fall HPI - General Chief Complaint: Fall Stated Complaint: Fall Time Seen by Provider: 05/29/24 20:02 Source: patient, EMS, RN notes reviewed Mode of arrival: EMS - History of Present Illness Initial Comments: 28-year-old male with no significant past medical history presents emergency department chief complaint of a fall. Patient is incarcerated and states that he was in his top bunk of his bed went to reach for a glass of water and rolled off striking the right side of his head. Patient believes that there may have been a brief period of loss of consciousness. He is currently endorsing cervical neck pain and right shoulder pain and thoracic back pain. Currently patient is denying headaches, blurry or double vision, shortness of breath, chest pain or difficulty breathing. - Related Data Home Medications Medication Instructions Recorded Confirmed No Known Home Medications 02/07/24 02/07/24 Allergies Allergy/AdvReac Type Severity Reaction Status Date / Time No Known Allergies Allergy Verified 02/07/24 07:28 Review of Systems ROS Statement: Those systems with pertinent positive or pertinent negative responses have been documented in the HPI. ROS Other: All systems not noted in ROS Statement are negative. Past Medical History Past Medical History: GERD/Reflux History of Any Multi-Drug Resistant Organisms: None Reported Past Surgical History: No Surgical Hx Reported Additional Past Surgical History / Comment(s): Back left knee surgery Past Anesthesia/Blood Transfusion Reactions: No Reported Reaction Additional Past Anesthesia/Blood Transfusion Reaction / Comment(s): "has never had any sx Past Psychological History: No Psychological Hx Reported Smoking Status: Vaper Past Alcohol Use History: Occasional Past Drug Use History: Marijuana, Opiates, Prescription Drug Abuse - Past Family History Father Family Medical History: No Reported History Mother Family Medical History: Asthma, Hypertension General Exam General appearance: alert, in no apparent distress Head exam: Present: other (contusion over the right eyebrow, no laceration or abrasion present) Eye exam: Present: normal appearance, PERRL, EOMI. Absent: scleral icterus, conjunctival injection, periorbital swelling ENT exam: Present: normal exam, mucous membranes moist Neck exam: Present: normal inspection, tenderness (posterior cervical) Respiratory exam: Present: normal lung sounds bilaterally. Absent: respiratory distress, wheezes, rales, rhonchi, stridor Cardiovascular Exam: Present: regular rate, normal rhythm, normal heart sounds. Absent: systolic murmur, diastolic murmur, rubs, gallop, clicks GI/Abdominal exam: Present: soft, normal bowel sounds. Absent: distended, tenderness, guarding, rebound, rigid Right Shoulder Exam: Present: tenderness (AC joint, no crepitus) Back exam: Present: normal inspection, tenderness (thoracic) Neurological exam: Present: alert, oriented X3, CN II-XII intact Skin exam: Present: warm, dry, intact, normal color. Absent: rash Course Vital Signs 05/29/24 05/29/24 05/29/24 19:47 21:38 22:56 Temperature 98.0 F 98.0 F Pulse Rate 85 88 68 Respiratory 18 18 18 Rate Blood Pressure 128/87 130/91 126/87 O2 Sat by Pulse 100 100 99 Oximetry Medical Decision Making - Medical Decision Making Was pt. sent in by a medical professional or institution (, PA, SEED LABORATORY ASSISTANT, urgent care, hospital, or custodial...) When possible be specific @ -No Did you speak to anyone other than the patient for history (EMS, parent, family, police, friend...)? What history was obtained from this source @ -No Did you review nursing and triage notes (agree or disagree)? Why? @ -I reviewed and agree with nursing and triage notes Were old charts reviewed (outside hosp., previous admission, EMS record, old EKG, old radiological studies, urgent care reports/EKG's, custodial records)? Report findings @ -No old charts were reviewed Differential Diagnosis (chest pain, altered mental status, abdominal pain women, abdominal pain men, vaginal bleeding, weakness, fever, dyspnea, syncope, headache, dizziness, GI bleed, back pain, seizure, CVA, palpatations, mental health, musculoskeletal)? @ -Fracture, sprain, cervical spine fracture, intracranial hemorrhage, this is not all inclusive. EKG interpreted by me (3pts min.). @ -none X-rays interpreted by me (1pt min.). @ -X-ray of the right shoulder and thoracic spine no acute osseous pathology noted. CT interpreted by me (1pt min.). @ -CT brain and C-spine no acute intracranial process or acute cervical spine fracture noted. U/S interpreted by me (1pt. min.). @ -None done What testing was considered but not performed or refused? (CT, X-rays, U/S, labs)? Why? @ -None What meds were considered but not given or refused? Why? @ -None Did you discuss the management of the patient with other professionals (professionals i.e. , PA, SEED LABORATORY ASSISTANT, lab, RT, psych nurse, social worker clinical, banana expert, teacher, health promotion officer, case briefer)? Give summary @ -No Was smoking cessation discussed for >3mins.? @ -No Was critical care preformed (if so, how long)? @ -No Were there social determinants of health that impacted care today? How? (Homelessness, low income, unemployed, alcoholism, drug addiction, transportation, low edu. Level, literacy, decrease access to med. care, usp, rehab)? @ -No Was there de-escalation of care discussed even if they declined (Discuss DNR or withdrawal of care, Hospice)? DNR status @ -No What co-morbidities impacted this encounter? (DM, HTN, Smoking, COPD, CAD, Cancer, CVA, ARF, Chemo, Hep., AIDS, mental health diagnosis, sleep apnea, morbid obesity)? @ -None Was patient admitted / discharged? Hospital course, mention meds given and route, prescriptions, significant lab abnormalities, going to OR and other pertinent info. @ -28-year-old male with a fall. Patient arrives via EMS with c-collar in plac e. Patient states that he is having pain over the posterior cervical spine in addition to the right shoulder. There are no acute neurological deficits on examination. With dose of Toradol pending results of CT and x-ray. CT scan of the brain and C-spine no acute process. C-collar removed and reevaluation there is no crepitus and pain with range of motion of the neck. X-ray of the right shoulder and thoracic spine no acute process noted. Patient is provided with Tylenol and is stable for discharge. All questions answered at bedside and strict return parameters triston with the patient he is verbalized understanding. Discussed with Dr. Rivera. Undiagnosed new problem with uncertain prognosis? @ -No Drug Therapy requiring intensive monitoring for toxicity (Heparin, Nitro, Insulin, Cardizem)? @ -No Were any procedures done? @ -No Diagnosis/symptom? @ -Fall, contusion Acute, or Chronic, or Acute on Chronic? @ -Acute Uncomplicated (without systemic symptoms) or Complicated (systemic symptoms)? @ -uncomplicated Side effects of treatment? @ -No Exacerbation, Progression, or Severe Exacerbation? @ -No Poses a threat to life or bodily function? How? (Chest pain, USA, CT, pneumonia, PE, COPD, DKA, ARF, appy, cholecystitis, CVA, Diverticulitis, Homicidal, Suicidal, threat to staff... and all critical care pts) @ -No Disposition Clinical Impression: Fall, Contusion Disposition: HOME SELF-CARE Condition: Good Instructions (If sedation given, give patient instructions): Contusion in Adults (ED) Additional Instructions: Return to the emergency department for any new or worsening symptoms. Continue supportive treatments cycling Tylenol Motrin and icing the affected areas. Is patient prescribed a controlled substance at d/c from ED?: No Referrals: None,Stated [Primary Care Provider] - 1-2 days Time of Disposition: 22:34
[2024-05-29] MEDS: KETOROLAC 15 MG/ML 1 ML VIAL IM STA (20:46)
--- NOTE | 2024-05-29 21:14 | CT ---
EXAMINATION TYPE: CT brain cspine wo con CT DLP: 1486.8 mGycm, Automated exposure control for dose reduction was used. DATE OF EXAM: 05/29/2024 8:26 PM COMPARISON: None. CLINICAL INDICATION:Male, 28 years old with history of fall, injury; c/o blurred vision post head inj ury TECHNIQUE: Brain: Multiple axial CT images of the brain were obtained without IV contrast. Cspine: Axial CT images from the skull base to the inferior aspect of T2 we obtained without intraven ous contrast. Coronal and sagittal reformatted images were also reviewed. . FINDINGS: Brain: Extra-axial spaces: No abnormal extra-axial fluid collections. Ventricular system: Within normal limits Cerebral parenchyma: No acute intraparenchymal hemorrhage or mass effect. The villegas-white junction is well differentiated. Cerebellum: Unremarkable. Mass effect: No evidence of midline shift. Intracranial vasculature: unremarkable Soft tissues: Normal. Calvarium/osseous structures: No depressed skull fracture. Paranasal sinuses and mastoid air cells: Mild scattered mucosal thickening with bilateral mucosal ret ention cysts. Visualized orbits: Orbital contents are intact. Cervical spine: Fracture: No acute fractures. Osseous structures: Unremarkable Vertebral alignment: Within normal limits. Spinal canal/Neural Foramina: No evidence of significant spinal canal narrowing. No evidence for sign ificant neural foraminal stenosis. Neck soft tissues: Prevertebral soft tissues are within normal limits. Other: The airway is patent. The lung apices are clear. IMPRESSION: 1. No acute intracranial process. 2. No evidence of acute cervical spine fracture.
--- NOTE | 2024-05-29 22:28 | XR ---
EXAMINATION TYPE: XR shoulder complete RT DATE OF EXAM: 05/29/2024 9:34 PM CLINICAL INDICATION: Male, 28 years old with history of fall, injury, pain; [facility] COMPARISON: None TECHNIQUE: XR shoulder complete RT; examined in AP, internally rotated and scapular Y projections. FINDINGS: No evidence of acute osseous pathology, joint dislocation, or soft tissue swelling. The remaining po rtions of the visualized chest are unremarkable. IMPRESSION: No acute osseous pathology.
--- NOTE | 2024-05-29 22:29 | XR ---
EXAMINATION TYPE: XR thoracic spine 2V DATE OF EXAM: 05/29/2024 9:34 PM CLINICAL INDICATION: Male, 28 years old with history of fall, injury, pain; [facility] COMPARISON: None TECHNIQUE: XR thoracic spine 2V views of the spine in Frontal and lateral projections. FINDINGS: No evidence of acute fracture. There is scattered multilevel disk space narrowing without loss of ve rtebral body height. There is normal alignment of the thoracic vertebral bodies. Scattered osteophyte formation along the anterior and lateral aspects of the vertebral bodies. Neural foramen are patent given limitations of this exam. Spinal canal appears patent. IMPRESSION: 1. No acute osseous pathology. 2. [id number] multilevel degeneration changes of the spine.
[2024-05-29] MEDS: ACETAMINOPHEN TAB 500 MG TAB PO STA (22:56)
[2024-05-29 22:58] VITALS: BP 126/87; PULSE 68
== END 2024-05-29 23:04 | disposition home or self-care (01) ==
LOC: EC 19:44
DX: S00.11XA Contusion of right eyelid and periocular area, initial encounter (principal); M54.2 Cervicalgia; M54.6 Pain in thoracic spine; M25.511 Pain in right shoulder; W06.XXXA Fall from bed, initial encounter
CPT/HCPCS: 72070; 73030; 72125; 70450; 99284; 96372; J1885

== ENCOUNTER 2024-05-29 23:10 | Emergency (ER) | payer OTHER ==
[2024-05-29 23:16] VITALS: BP 138/96; PULSE 81; RESP 18; TEMP 98.4
--- NOTE | 2024-05-29 23:18 | ED ---
Fall HPI - General Chief Complaint: Fall Stated Complaint: Fall Source: patient, police, RN notes reviewed, old records reviewed Mode of arrival: ambulatory - History of Present Illness Initial Comments: This is a 28-year-old male with a fall from standing. Patient was just discharged from our emergency department and during escorted out of the emergency department he hit the ground. Patient presents for evaluation of fall Patient's recent ER visit was related to fall off the second shiva CONNELL Complaint: fall -: days(s) Fall From: standing When Fall Occurred: unsure Fall Witnessed: no Place Fall Occurred: home Loss of Consciousness: none Prolonged Down Time?: no Symptoms Prior to Fall: none Location: head Severity: mild Severity scale (1-10): 1 Quality: burning Context: tripped/slipped Associated Symptoms: denies - Related Data Home Medications Medication Instructions Recorded Confirmed No Known Home Medications 02/07/24 02/07/24 Allergies Allergy/AdvReac Type Severity Reaction Status Date / Time No Known Allergies Allergy Verified 02/07/24 07:28 Review of Systems ROS Statement: Those systems with pertinent positive or pertinent negative responses have been documented in the HPI. ROS Other: All systems not noted in ROS Statement are negative. Past Medical History Past Medical History: GERD/Reflux History of Any Multi-Drug Resistant Organisms: None Reported Past Surgical History: No Surgical Hx Reported Additional Past Surgical History / Comment(s): Back left knee surgery Past Anesthesia/Blood Transfusion Reactions: No Reported Reaction Additional Past Anesthesia/Blood Transfusion Reaction / Comment(s): "has never had any sx Past Psychological History: No Psychological Hx Reported Smoking Status: Vaper Past Alcohol Use History: Occasional Past Drug Use History: Marijuana, Opiates, Prescription Drug Abuse - Past Family History Father Family Medical History: No Reported History Mother Family Medical History: Asthma, Hypertension General Exam General appearance: alert, in no apparent distress Head exam: Present: atraumatic, normocephalic, normal inspection Eye exam: Present: normal appearance, PERRL, EOMI. Absent: scleral icterus, conjunctival injection, periorbital swelling ENT exam: Present: normal exam, mucous membranes moist Neck exam: Present: normal inspection. Absent: tenderness, meningismus, lymphadenopathy Respiratory exam: Present: normal lung sounds bilaterally. Absent: respiratory distress, wheezes, rales, rhonchi, stridor Cardiovascular Exam: Present: regular rate, normal rhythm, normal heart sounds. Absent: systolic murmur, diastolic murmur, rubs, gallop, clicks GI/Abdominal exam: Present: soft, normal bowel sounds. Absent: distended, tenderness, guarding, rebound, rigid Extremities exam: Present: normal inspection, full ROM, normal capillary refill. Absent: tenderness, pedal edema, joint swelling, calf tenderness Back exam: Present: normal inspection Neurological exam: Present: alert, oriented X3, CN II-XII intact Psychiatric exam: Present: normal affect, normal mood Skin exam: Present: warm, dry, intact, normal color. Absent: rash Course Vital Signs 05/29/24 23:13 Temperature 98.4 F Pulse Rate 81 Respiratory 18 Rate Blood Pressure 138/96 O2 Sat by Pulse 100 Oximetry - Reevaluation(s) Reevaluation #1: 05/29/24 23:17 Records reviewed Reevaluation #2: 05/29/24 23:17 Patient has no significant findings here in the ER Reevaluation #3: 05/29/24 23:17 Informed of results and questions answered Reevaluation #4: Was pt. sent in by a medical professional or institution (, PA, SHOE REPAIRER APPRENTICE, urgent care, hospital, or [place] [facility] facility...) When possible be specific @ -no Did you speak to anyone other than the patient for history (EMS, parent, family, police, friend...)? What history was obtained from this source @ -no Did you review nursing and triage notes (agree or disagree)? Why? @ -agree Are old charts reviewed (outside hosp., previous admission, EMS record, old EKG, old radiological studies, urgent care reports/EKG's, [place] [facility] records)? Report findings @ -yes Differential Diagnosis (chest pain, altered mental status, abdominal pain women, abdominal pain men, vaginal bleeding, weakness, fever, dyspnea, syncope, headache, dizziness, GI bleed, back pain, seizure, CVA, palpatations, mental health, musculoskeletal)? @ -prior EKG interpreted by me (3pts min.). @ -no X-rays interpreted by me (1pt min.). @ -no CT interpreted by me (1pt min.). @ -no U/S interpreted by me (1pt. min.). @ -no What testing was considered but not performed or refused? (CT, X-rays, U/S, labs)? Why? @ -none What meds were considered but not given or refused? Why? @ -none Did you discuss the management of the patient with other professionals (professionals i.e. , PA, SHOE REPAIRER APPRENTICE, lab, RT, psych nurse, social work nurse, fan mail clerk, teacher, contracts officer, case resource manager)? Give summary @ -no Was smoking cessation discussed for >3mins.? @ -no Was critical care preformed (if so, how long)? @ -no Were there social determinants of health that impacted care today? How? (Homelessness, low income, unemployed, alcoholism, drug addiction, transportation, low edu. Level, literacy, decrease access to med. care, retirement, rehab)? @ -none Was there de-escalation of care discussed even if they declined (Discuss DNR or withdrawal of care, Hospice)? DNR status @ -no What co-morbidities impacted this encounter? (DM, HTN, Smoking, COPD, CAD, Cancer, CVA, ARF, Chemo, Hep., AIDS, mental health diagnosis, sleep apnea, morbid obesity)? @ -none Was patient admitted / discharged? Hospital course, mention meds given and route, prescriptions, significant lab abnormalities, going to OR and other pertinent info. @ - 28 to the emergency department who recently suffered from a fall from standing no traumatic injury noted on exam. Patient can be discharged home Discharge fall Undiagnosed new problem with uncertain prognosis? @ -no Drug Therapy requiring intensive monitoring for toxicity (Heparin, Nitro, Insulin, Cardizem)? @ -no Were any procedures done? @ -no Diagnosis/symptom? @ - Acute, or Chronic, or Acute on Chronic? @ -Acute Uncomplicated (without systemic symptoms) or Complicated (systemic symptoms)? @ -Complicated Side effects of treatment? @ -no Exacerbation, Progression, or Severe Exacerbation? @ -exacerbation Poses a threat to life or bodily function? How? (Chest pain, [place], [place], pneumonia, PE, COPD, DKA, ARF, appy, cholecystitis, CVA, Diverticulitis, Homicidal, Suicidal, threat to staff... and all critical care pts) @ -no Medical Decision Making - Medical Decision Making 28 to the emergency department who recently suffered from a fall from standing no traumatic injury noted on exam. Patient can be discharged home Disposition Clinical Impression: Fall Disposition: HOME SELF-CARE Condition: Good Instructions (If sedation given, give patient instructions): Fall Prevention (ED) Is patient prescribed a controlled substance at d/c from ED?: No Referrals: None,Stated [Primary Care Provider] - 1-2 days Time of Disposition: 23:20
== END 2024-05-29 23:19 | disposition home or self-care (01) ==
LOC: EC 23:10
CPT/HCPCS: 99283

== ENCOUNTER 2025-04-12 10:22 | Emergency (ER) | payer OTHER ==
--- NOTE | 2025-04-12 11:08 | ED ---
General Adult HPI - General Chief complaint: Recheck/Abnormal Lab/Rx Stated complaint: Abn EKG Time Seen by Provider: 04/12/25 10:40 Source: patient Mode of arrival: ambulatory Limitations: no limitations - History of Present Illness Initial comments: Dictation was produced using [employer] dictation software. please excuse any grammatical, word or spelling errors. Chief Complaint: 29-year-old male with presyncopal episode at PCPs office History of Present Illness: Patient 29-year-old male he was at his primary care doctor's office for checkup. Patient states that he is prone to feeling faint. States that when he drinks too much water and once he starts to feel lightheaded gets sweaty. Today he was having his blood drawn had a similar episode. Was found be bradycardic. Primary care doctor told him that he should come to the ER after that episode. Patient states that he gets a little queasy during certain situations. Patient takes Suboxone daily. The ROS documented in this emergency department record has been reviewed and confirmed by me. Those systems with pertinent positive or negative responses have been documented in the HPI. All other systems are other negative and/or noncontributory. - Related Data Home Medications Medication Instructions Recorded Confirmed No Known Home Medications 02/07/24 02/07/24 Allergies Allergy/AdvReac Type Severity Reaction Status Date / Time No Known Allergies Allergy Verified 04/12/25 10:38 Review of Systems ROS Statement: Those systems with pertinent positive or pertinent negative responses have been documented in the HPI. ROS Other: All systems not noted in ROS Statement are negative. Past Medical History Past Medical History: GERD/Reflux History of Any Multi-Drug Resistant Organisms: None Reported Past Surgical History: No Surgical Hx Reported Additional Past Surgical History / Comment(s): Back left knee surgery Past Anesthesia/Blood Transfusion Reactions: No Reported Reaction Additional Past Anesthesia/Blood Transfusion Reaction / Comment(s): "has never had any sx Past Psychological History: No Psychological Hx Reported Smoking Status: Vaper Past Alcohol Use History: Occasional Past Drug Use History: Marijuana, Opiates, Prescription Drug Abuse - Past Family History Father Family Medical History: No Reported History Mother Family Medical History: Asthma, Hypertension General Exam - General Exam Comments Initial Comments: PHYSICAL EXAM: General Impression: Alert and oriented x3, not in acute distress HEENT: Normocephalic atraumatic, extra-ocular movements intact, pupils equal and reactive to light bilaterally, mucous membranes moist. Cardiovascular: Heart regular rate and rhythm Chest: Able to complete full sentences, no retractions, no tachypnea Abdomen: abdomen soft, non-tender, non-distended, no organomegaly Musculoskeletal: Pulses present and equal in all extremities, no peripheral edema Motor: no focal deficits noted Neurological: CN II-XII grossly intact, no focal motor or sensory deficits noted Skin: Intact with no visualized rashes Psych: Normal affect and mood Limitations: no limitations Course Vital Signs 04/12/25 04/12/25 10:35 11:06 Temperature 98 F Pulse Rate 51 L 58 L Pulse Rate [ 58 L Electronic Operator ] Respiratory 20 18 Rate Blood Pressure 121/73 122/74 O2 Sat by Pulse 100 99 Oximetry EKG Findings - EKG Comments: EKG Findings:: My EKG interpretation: Ventricular rate 47, sinus bradycardia, AR 157, cures 93, QTc 397. No AR prolongation, no QTC prolongation, no ST or T-wave changes noted. Overall, this EKG is unremarkable Medical Decision Making - Medical Decision Making Was pt. sent in by a medical professional or institution (, PA, SHINGLE TRIMMER, urgent care, hospital, or correction...) When possible be specific @ -No Did you speak to anyone other than the patient for history (EMS, parent, family, police, friend...)? What history was obtained from this source @ -No Did you review nursing and triage notes (agree or disagree)? Why? @ -I reviewed and agree with nursing and triage notes Were old charts reviewed (outside hosp., previous admission, EMS record, old EKG, old radiological studies, urgent care reports/EKG's, correction records)? Report findings @ -No old charts were reviewed Differential Diagnosis (chest pain, altered mental status, abdominal pain women, abdominal pain men, vaginal bleeding, musculoskeletal, weakness, fever, dyspnea, syncope, headache, dizziness, GI bleed, back pain, seizure, CVA, palpatations, mental health)? @ -Differential Syncope: Valvular disease, hypertrophic cardiomyopathy, pulmonary embolism, tamponade, tachycardia, bradycardia, [place], hypovolemia, hemorrhage, dissection, anemia, intracranial hemorrhage, seizure, hypoglycemia, carbon monoxide poisoning, this is not meant to be an all-inclusive list. EKG interpreted by me (3pts min.). @ -See above X-rays interpreted by me (1pt min.). @ -Chest x-ray is nonacute CT interpreted by me (1pt min.). @ -None done U/S interpreted by me (1pt. min.). @ -None done What testing was considered but not performed or refused? (CT, X-rays, U/S, labs)? Why? @ -None What meds were considered but not given or refused? Why? @ -None Was smoking cessation discussed for >3mins.? @ -No Were there social determinants of health that impacted care today? How? (Homelessness, low income, unemployed, alcoholism, drug addiction, tra nsportation, low edu. Level, literacy, decrease access to med. care, long-term, rehab)? @ -No Was there de-escalation of care discussed even if they declined (Discuss DNR or withdrawal of care, Hospice)? DNR status @ -No What co-morbidities impacted this encounter? (DM, HTN, Smoking, COPD, CAD, Cancer, CVA, ARF, Chemo, Hep., AIDS, mental health diagnosis, sleep apnea, morbid obesity)? @ -None Was patient admitted / discharged? Hospital course, mention meds given and route, prescriptions, significant lab abnormalities, going to OR and other pertinent info. @ -29-year-old male presents emergency department from primary care physician's office for syncopal episode. Vital signs stable. Suspect vasovagal syncope he has no cardiac risk factors. Labs unremarkable. Patient placed on monitor with no acute events. Reevaluated bedside at 12:33 PM will be discharged with referral to cardiology. Did you discuss the management of the patient with other professionals (professionals i.e. , PA, SHINGLE TRIMMER, lab, RT, psych nurse, psychosocial rehabilitation counselor, area cleaner, teacher, air defense artillery officer, director of casework department)? Give summary @ -No Was critical care preformed (if so, how long)? @ -No Undiagnosed new problem with uncertain prognosis? @ -No Drug Therapy requiring intensive monitoring for toxicity (Heparin, Nitro, Insuli n, Cardizem)? @ -No Were any procedures done? @ -No Diagnosis/symptom? Acute, or Chronic, or Acute on Chronic? Uncomplicated (without systemic symptoms) or Complicated (systemic symptoms)? @ -Syncope, no high risk features Side effects of treatment? @ -No Exacerbation, Progression, or Severe Exacerbation? @ -No Poses a threat to life or bodily function? How? (Chest pain, [place], [place], pneumonia, PE, COPD, DKA, ARF, appy, cholecystitis, CVA, Diverticulitis, Homicidal, Suicidal, threat to staff... and all critical care pts) @ -no - Lab Data Result diagrams: 04/12/25 11:04/12/25 11: Lab Results 04/12/25 04/12/25 04/12/25 Range/Units 11: 11: 11: WBC 3.88 L (4.50-10.00) 10*3/uL RBC 4.55 (4.40-5.60) 10*6/uL Hgb 14.2 (13.0-17.0) g/dL Hct 39.7 (39.6-50.0) % MCV 87.3 (80.0-97.0) fL MCH 31.2 (27.0-32.0) pg MCHC 35.8 (32.0-37.0) g/dL Plt Count 225 (140-440) 10*3/uL MPV 11.1 (9.5-12.2) fL Immature Gran % (Auto) 0.3 % Neutrophils % 55.1 % Lymphocytes % 35.8 % Monocytes % 7.0 % Eosinophils % 1.3 % Basophils % 0.5 % Immature Gran # 0.01 (0.00-0.04) 10*3/uL Neutrophils # 2.14 (1.80-7.70) 10*3/uL Lymphocytes # 1.39 (0.90-5.00) 10*3/uL Monocytes # 0.27 (0.20-1.00) 10*3/uL Eosinophils # 0.05 (0.04-0.35) 10*3/uL Basophils # 0.02 (0.00-0.10) 10*3/uL PT 11.3 (10.0-12.5) sec INR 1.0 (<1.2) APTT 22.4 (22.0-30.0) sec Sodium 142 (137-145) mmol/L Potassium 5.1 (3.5-5.1) mmol/L Chloride 104 (98-107) mmol/L Carbon Dioxide 23 (22-30) mmol/L Anion Gap 15 mmol/L BUN 16 (9-20) mg/dL Creatinine 0.63 L (0.66-1.25) mg/dL Est GFR (CKD-EPI)AfAm >90 (>60 ml/min/1.73 sqM) Est GFR (CKD-EPI)NonAf >90 (>60 ml/min/1.73 sqM) Glucose 112 H (74-99) mg/dL Calcium 9.9 (8.4-10.2) mg/dL Total Bilirubin 2.7 H (0.2-1.3) mg/dL AST 30 (17-59) U/L ALT 16 (4-49) U/L Alkaline Phosphatase 27 L (38-126) U/L Troponin I (0.000-0.034) ng/mL Total Protein 7.9 (6.3-8.2) g/dL Albumin 5.0 (3.5-5.0) g/dL 04/12/25 Range/Units 11:25 WBC (4.50-10.00) 10*3/uL RBC (4.40-5.60) 10*6/uL Hgb (13.0-17.0) g/dL Hct (39.6-50.0) % MCV (80.0-97.0) fL MCH (27.0-32.0) pg MCHC (32.0-37.0) g/dL Plt Count (140-440) 10*3/uL MPV (9.5-12.2) fL Immature Gran % (Auto) % Neutrophils % % Lymphocytes % % Monocytes % % Eosinophils % % Basophils % % Immature Gran # (0.00-0.04) 10*3/uL Neutrophils # (1.80-7.70) 10*3/uL Lymphocytes # (0.90-5.00) 10*3/uL Monocytes # (0.20-1.00) 10*3/uL Eosinophils # (0.04-0.35) 10*3/uL Basophils # (0.00-0.10) 10*3/uL PT (10.0-12.5) sec INR (<1.2) APTT (22.0-30.0) sec Sodium (137-145) mmol/L Potassium (3.5-5.1) mmol/L Chloride (98-107) mmol/L Carbon Dioxide (22-30) mmol/L Anion Gap mmol/L BUN (9-20) mg/dL Creatinine (0.66-1.25) mg/dL Est GFR (CKD-EPI)AfAm (>60 ml/min/1.73 sqM) Est GFR (CKD-EPI)NonAf (>60 ml/min/1.73 sqM) Glucose (74-99) mg/dL Calcium (8.4-10.2) mg/dL Total Bilirubin (0.2-1.3) mg/dL AST (17-59) U/L ALT (4-49) U/L Alkaline Phosphatase (38-126) U/L Troponin I <0.012 (0.000-0.034) ng/mL Total Protein (6.3-8.2) g/dL Albumin (3.5-5.0) g/dL Disposition Clinical Impression: Vasovagal syncope Disposition: HOME SELF-CARE Condition: Fair Instructions (If sedation given, give patient instructions): Syncope (ED) Is patient prescribed a controlled substance at d/c from ED?: No Referrals: Rossy Schultz MD [Primary Care Provider] - 1-2 days Emmanuel Patrick MD [Medical Doctor] - 1-2 days Time of Disposition: 12:34
[2025-04-12 11:11] VITALS: RESP 18
[2025-04-12 11:31] LABS: Basophils # (A) 0.02 10*3/uL (0.00-0.10); Basophils % (A) 0.5 %; Eosinophils # (A) 0.05 10*3/uL (0.04-0.35); Eosinophils % (A) 1.3 %; HCT 39.7 % (39.6-50.0); HGB 14.2 g/dL (13.0-17.0); Lymphocytes # (A) 1.39 10*3/uL (0.90-5.00); Lymphocytes % (A) 35.8 %; MCH 31.2 pg (27.0-32.0); MCHC 35.8 g/dL (32.0-37.0); MCV 87.3 fL (80.0-97.0); Monocytes # (A) 0.27 10*3/uL (0.20-1.00); Monocytes % (A) 7.0 %; Neutrophils # (A) 2.14 10*3/uL (1.80-7.70); Neutrophils % (A) 55.1 %; Platelet Count 225 10*3/uL (140-440); RBC 4.55 10*6/uL (4.40-5.60); RDW 11.7 % (11.5-14.5); WBC 3.88 10*3/uL (4.50-10.00)
[2025-04-12 11:40] LABS: INR 1.0 (<1.2); Partial Thromboplastin Time 22.4 sec (22.0-30.0); Prothrombin Time 11.3 sec (10.0-12.5)
--- NOTE | 2025-04-12 11:50 | XR ---
EXAMINATION TYPE: XR chest 2V DATE OF EXAM: 04/12/2025 11:30 AM COMPARISON: Chest radiographs from 05/28/2021. CLINICAL INDICATION: Male, 29 years old with history of syncope; TECHNIQUE: XR chest 2V Frontal and lateral views of the chest. FINDINGS: Lungs/Pleura: There is no evidence of pleural effusion, focal consolidation, or pneumothorax. Pulmonary vascularity: Unremarkable. Heart/mediastinum: Cardiomediastinal silhouette is unremarkable. Musculoskeletal: No acute osseous pathology. IMPRESSION: No acute cardiopulmonary disease/process. [facility], , 04/12/2025 11:47 AM
[2025-04-12 12:05] LABS: ALT 16 U/L (4-49); African American GFR (CKD) >90 (>60 ml/min/1.73 sqM); Anion Gap 15 mmol/L; Blood Urea Nitrogen 16 mg/dL (9-20); Calcium 9.9 mg/dL (8.4-10.2); Carbon Dioxide 23 mmol/L (22-30); Chloride 104 mmol/L (98-107); Glucose 112 mg/dL (74-99); Non-African American GFR(CKD) >90 (>60 ml/min/1.73 sqM); Sodium 142 mmol/L (137-145)
[2025-04-12 12:11] LABS: AST 30 U/L (17-59); Albumin 5.0 g/dL (3.5-5.0); Alkaline Phosphatase 27 U/L (38-126); Potassium 5.1 mmol/L (3.5-5.1); Total Protein 7.9 g/dL (6.3-8.2)
[2025-04-12 12:45] VITALS: BP 113/61; PULSE 56; TEMP 98.6
== END 2025-04-12 12:45 | disposition home or self-care (01) ==
LOC: EC 10:22
DX: R55 Syncope and collapse (principal); F17.290 Nicotine dependence, other tobacco product, uncomplicated
CPT/HCPCS: 36415; 71046; 80053; 84484; 85025; 85610; 85730; 93005; 99284